=== PATIENT | male | born 1975 | race Two or more races ===

== ENCOUNTER 2019-10-26 08:51 | Inpatient (IN) | payer BC ==
[~2019-10-26] VITALS: Ht 185.4 cm; Wt 137.9 kg
[2019-10-26 12:50] VITALS: BP 163/91
--- NOTE | 2019-10-26 12:50 | NUR ---
NURSE NOTES: [facility] by [facility]. Alert, ambulatory, oriented x4. Has SL L H and LFA both 22G. No complaint of pain or discomfort. Bed has siderails padded as patient has history of seizures/epilepsy.
[2019-10-26] MEDS ORDERED: DEPAKOTE125 MG PO (12:55)
[2019-10-26] MEDS ORDERED: VIMPAT100 MG PO (12:57)
[2019-10-26] MEDS ORDERED: SYMBICORT 80-10.2 G1 IH (12:58)
[2019-10-26] MEDS ORDERED: PROAIR HFA8.5 GM INH (13:02)
[2019-10-26] MEDS ORDERED: NORVASC10 MG ORAL (13:03)
--- NOTE | 2019-10-26 15:36 | History & Physical ---
History and Physical History & Physicial Dictated for Int med-Dr Irene no. [id number]. Tony Hoyt MD Oct 26, 2019 15:36
[2019-10-26] MEDS ORDERED: LORazepam 1mg tab ORAL PRN (15:45)
[2019-10-26 16:00] VITALS: BP 177/88
[2019-10-26] MEDS ORDERED: Albuterol ud Inhalation HHN PRN (16:00)
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
[2019-10-26 17:32] LABS: ALANINE AMINOTRANSFERASE 32 U/L (12-78); ALBUMIN 3.1 G/DL (3.4-5.0); ALBUMIN/GLOBULIN RATIO 0.8 (1.0-2.7); ALKALINE PHOSPHATASE 62 U/L (46-116); ANION GAP 9 mmol/L (5-15); ASPARTATE AMINO TRANSFERASE 22 U/L (15-37); BASOPHILS % (AUTO) 1.9 % (0.0-2.0); BILIRUBIN,TOTAL 0.4 MG/DL (0.2-1.0); BLOOD UREA NITROGEN 18 mg/dL (7-18); CALCIUM 8.8 MG/DL (8.5-10.1); CARBON DIOXIDE 24 MMOL/L (21-32); CHLORIDE 103 MMOL/L (98-107); CREATININE 1.4 MG/DL (0.55-1.30); EOSINOPHILS % (AUTO) 3.4 % (0.0-3.0); HEMATOCRIT 40.4 % (42.0-52.0); HEMOGLOBIN 13.9 G/DL (14.2-18.0); LYMPHOCYTES % (AUTO) 51.6 % (20.0-45.0); MEAN CORPUSCULAR VOLUME 84 FL (80-99); NEUTROPHILS % (AUTO) 35.1 % (45.0-75.0); PLATELET COUNT 233 K/UL (150-450); POTASSIUM 4.6 MMOL/L (3.5-5.1); RED CELL DISTRIBUTION WIDTH 12.1 % (11.6-14.8); SODIUM 136 MMOL/L (136-145); WHITE BLOOD COUNT 5.4 K/UL (4.8-10.8)
[2019-10-26] MEDS: NovoLOG Insulin Flexpen SUBQ SCH ×2 (17:40→20:15)
--- NOTE | 2019-10-26 19:21 | NUR ---
HAND-OFF: Report given to BRITTANY Luke.
[2019-10-26 20:00] VITALS: BP 151/75
--- NOTE | 2019-10-26 20:00 | NUR ---
NURSE NOTES: Patient received in bed, asleep, no acute distress, denies pain at this time. Call light in reach, instructed to call for assistance, verbalized understanding. Will continue plan of care.
[2019-10-26] MEDS: metFORMIN 500mg tab ORAL SCH (20:09)
[2019-10-26] MEDS: Lacosamide 50mg tablet ORAL SCH (20:09)
[2019-10-26] MEDS: Depakote 500mg tab ORAL SCH (20:10)
[2019-10-26 20:53] LABS: APPEARANCE,URINE CLEAR; BILIRUBIN, URINE NEGATIVE (NEGATIVE); COLOR,URINE PALE YELLOW; GLUCOSE, URINE (UA) 4+ (NEGATIVE); KETONES,URINE 3+ (NEGATIVE); LEUKOCYTE ESTERASE ,URINE NEGATIVE (NEGATIVE); NITRITE,URINE NEGATIVE (NEGATIVE); PH,URINE 5 (4.5-8.0); PROTEIN,URINE NEGATIVE (NEGATIVE); UROBILINOGEN,URINE NORMAL MG/DL (0.0-1.0)
[2019-10-27] VITALS: BP 153/80
[2019-10-27 04:00] VITALS: BP 150/78
[2019-10-27] MEDS: metFORMIN 500mg tab ORAL SCH ×3 (06:09→16:57)
[2019-10-27] MEDS: NovoLOG Insulin Flexpen SUBQ SCH ×4 (06:10→20:24)
[2019-10-27 07:19] LABS: BASOPHILS % (AUTO) 1.6 % (0.0-2.0); EOSINOPHILS % (AUTO) 3.4 % (0.0-3.0); HEMATOCRIT 46.6 % (42.0-52.0); HEMOGLOBIN 15.7 G/DL (14.2-18.0); LYMPHOCYTES % (AUTO) 51.7 % (20.0-45.0); MEAN CORPUSCULAR VOLUME 86 FL (80-99); MONOCYTES % (AUTO) 7.7 % (1.0-10.0); NEUTROPHILS % (AUTO) 35.6 % (45.0-75.0); PLATELET COUNT 257 K/UL (150-450); RED BLOOD COUNT 5.44 M/UL (4.70-6.10); RED CELL DISTRIBUTION WIDTH 12.5 % (11.6-14.8); WHITE BLOOD COUNT 6.1 K/UL (4.8-10.8)
--- NOTE | 2019-10-27 07:22 | NUR ---
HAND-OFF: Report given to Rosa Maria SOTO.
[2019-10-27 07:48] LABS: ANION GAP 10 mmol/L (5-15); BLOOD UREA NITROGEN 15 mg/dL (7-18); CARBON DIOXIDE 25 MMOL/L (21-32); CHLORIDE 102 MMOL/L (98-107); CHOLESTEROL 200 MG/DL (< 200); CREATININE 1.5 MG/DL (0.55-1.30); HDL CHOLESTEROL 46 MG/DL (40-60); POTASSIUM 4.3 MMOL/L (3.5-5.1); SODIUM 137 MMOL/L (136-145); TRIGLYCERIDES 257 MG/DL (30-150)
[2019-10-27 08:00] VITALS: BP 164/82
[2019-10-27] MEDS: Lacosamide 50mg tablet ORAL SCH ×2 (10:17→20:20)
[2019-10-27 12:00] VITALS: BP 163/89
--- NOTE | 2019-10-27 13:30 | Consultation ---
History of Present Illness Present Illness HPI 43 year old male with hx of asthma, HTN, morbid obesity presented to [facility] with polyuria and was found to have new onset diabetes. He has strong family history of DM. He is transferred to [facility] for further treatment. Allergies: Coded Allergies: No Known Allergies (Unverified , 10/26/19) Medication History Scheduled Albuterol Sulfate* (Proair Hfa*), 2 PUFFS INH Q6HR, (Reported) Amlodipine Besylate (Norvasc), 10 MG ORAL DAILY, (Reported) Budesonide/Formoterol Fumarate (Symbicort 80-4.5 Mcg Inhaler), 2 PUFFS IH BID, ( Reported) Divalproex Sodium (Depakote), 500 MG PO QHS, (Reported) Lacosamide (Vimpat), 100 MG PO EVERY 12 HOURS, (Reported) Patient History Healthcare decision maker Resuscitation status Full Code Advanced Directive on File Yes Past Medical/Surgical History Past Medical/Surgical History: (1) History of asthma (2) Seizure disorder Review of Systems All Other Systems: negative except mentioned in HPI Physical Exam General Appearance: mild distress, obese Lines, tubes and drains: peripheral HEENT: normocephalic, atraumatic Neck: non-tender, supple Respiratory/Chest: chest wall non-tender, lungs clear Breasts: no masses Cardiovascular/Chest: normal peripheral pulses, regular rhythm Abdomen: normal bowel sounds Genitourinary/Rectal: normal genital exam Last 24 Hour Vital Signs Date Time Temp Pulse Resp B/P (MAP) Pulse Ox O2 Delivery O2 Flow Rate FiO2 10/27/19 12:00 98.2 65 18 163/89 (113) 93 10/27/19 10:16 61 164/82 10/27/19 08:00 97.6 61 20 164/82 (109) 98 10/27/19 04:00 97.7 60 18 150/78 (102) 97 10/27/19 00:18 61 18 100 Room Air 21 54 18 96 10/27/19 00:00 97.7 58 18 153/80 (104) 98 10/26/19 21:00 Room Air 10/26/19 20:00 97.7 55 18 151/75 (100) 97 10/26/19 17:34 56 163/91 10/26/19 16:00 97.5 53 18 177/88 (117) 97 Intake and Output 10/26/19 10/27/19 19:00 07:00 Intake Total 675 ml 1625 ml Balance 675 ml 1625 ml Intake Oral 600 ml 800 ml IV Total 75 ml 825 ml # Voids 2 5 # Bowel Movements 1 Laboratory Tests Test 10/26/19 16:20 10/26/19 18:00 10/27/19 06:30 White Blood Count 5.4 K/UL (4.8-10.8) 6.1 K/UL (4.8-10.8) Red Blood Count 4.80 M/UL (4.70-6.10) 5.44 M/UL (4.70-6.10) Hemoglobin 13.9 G/DL (14.2-18.0) L 15.7 G/DL (14.2-18.0) Hematocrit 40.4 % (42.0-52.0) L 46.6 % (42.0-52.0) Mean Corpuscular Volume 84 FL (80-99) 86 FL (80-99) Mean Corpuscular Hemoglobin 28.9 PG (27.0-31.0) 28.9 PG (27.0-31.0) Mean Corpuscular Hemoglobin Concent 34.3 G/DL (32.0-36.0) 33.7 G/DL (32.0-36.0) Red Cell Distribution Width 12.1 % (11.6-14.8) 12.5 % (11.6-14.8) Platelet Count 233 K/UL (150-450) 257 K/UL (150-450) Mean Platelet Volume 6.8 FL (6.5-10.1) 6.6 FL (6.5-10.1) Neutrophils (%) (Auto) 35.1 % (45.0-75.0) L 35.6 % (45.0-75.0) L Lymphocytes (%) (Auto) 51.6 % (20.0-45.0) H 51.7 % (20.0-45.0) H Monocytes (%) (Auto) 8.0 % (1.0-10.0) 7.7 % (1.0-10.0) Eosinophils (%) (Auto) 3.4 % (0.0-3.0) H 3.4 % (0.0-3.0) H Basophils (%) (Auto) 1.9 % (0.0-2.0) 1.6 % (0.0-2.0) Sodium Level 136 MMOL/L (136-145) 137 MMOL/L (136-145) Potassium Level 4.6 MMOL/L (3.5-5.1) 4.3 MMOL/L (3.5-5.1) Chloride Level 103 MMOL/L (98-107) 102 MMOL/L (98-107) Carbon Dioxide Level 24 MMOL/L (21-32) 25 MMOL/L (21-32) Anion Gap 9 mmol/L (5-15) 10 mmol/L (5-15) Blood Urea Nitrogen 18 mg/dL (7-18) 15 mg/dL (7-18) Creatinine 1.4 MG/DL (0.55-1.30) H 1.5 MG/DL (0.55-1.30) H Estimat Glomerular Filtration Rate 54.8 mL/min (>60) 50.6 mL/min (>60) Glucose Level 345 MG/DL (74-106) H 288 MG/DL (74-106) H Calcium Level 8.8 MG/DL (8.5-10.1) 9.0 MG/DL (8.5-10.1) Total Bilirubin 0.4 MG/DL (0.2-1.0) Aspartate Amino Transf (AST/SGOT) 22 U/L (15-37) Alanine Aminotransferase (ALT/SGPT) 32 U/L (12-78) Alkaline Phosphatase 62 U/L (46-116) Total Protein 7.2 G/DL (6.4-8.2) Albumin 3.1 G/DL (3.4-5.0) L Globulin 4.1 g/dL Albumin/Globulin Ratio 0.8 (1.0-2.7) L Urine Color Pale yellow Urine Appearance Clear Urine pH 5 (4.5-8.0) Urine Specific [place] 1.015 (1.005-1.035) Urine Protein Negative (NEGATIVE) Urine Glucose (UA) 4+ (NEGATIVE) H Urine Ketones 3+ (NEGATIVE) H Urine Blood Negative (NEGATIVE) Urine Nitrite Negative (NEGATIVE) Urine Bilirubin Negative (NEGATIVE) Urine Urobilinogen Normal MG/DL (0.0-1.0) Urine Leukocyte Esterase Negative (NEGATIVE) Hemoglobin A1c 10.9 % (4.3-6.0) H Triglycerides Level 257 MG/DL (30-150) H Cholesterol Level 200 MG/DL (< 200) LDL Cholesterol 106 mg/dL (<100) H HDL Cholesterol 46 MG/DL (40-60) Cholesterol/HDL Ratio 4.3 (3.3-4.4) Height (Feet): 6 Height (Inches): 1.00 Weight (Pounds): 300 Medications Current Medications Medications (Trade) Dose Ordered Sig/Venkata Route PRN Reason Start Time Stop Time Status Last Admin Dose Admin Acetaminophen (Tylenol) 650 mg Q4H PRN ORAL Mild Pain (Pain Scale 1-3) 10/26/19 15:45 11/25/19 15:44 Acetaminophen (Tylenol) 650 mg Q4H PRN ORAL T>100.5 10/26/19 15:45 11/25/19 15:44 Albuterol Sulfate (Proventil) 2.5 mg Q6H PRN HHN Shortness of Breath 10/26/19 16:00 10/31/19 15:59 10/27/19 00:14 Amlodipine Besylate (Norvasc) 10 mg DAILY ORAL 10/26/19 16:30 11/26/19 08:59 10/27/19 10:16 Dextrose (Dextrose 50%) 25 ml Q30M PRN IV Hypoglycemia 10/26/19 16:00 11/25/19 15:59 Dextrose (Dextrose 50%) 50 ml Q30M PRN IV Hypoglycemia 10/26/19 16:00 11/25/19 15:59 Diphenhydramine HCl (Benadryl) 25 mg Q6H PRN ORAL Itching/Pruritis 10/26/19 15:45 11/25/19 15:44 Divalproex Sodium (Depakote) 500 mg QHS ORAL 10/26/19 21:00 11/25/19 20:59 10/26/19 20:10 Insulin Aspart (NovoLOG) BEFORE MEALS AND HS SUBQ 10/26/19 17:00 11/25/19 16:59 10/27/19 12:42 Lacosamide (Vimpat) 100 mg Q12HR ORAL 10/26/19 21:00 11/25/19 20:59 10/27/19 10:17 Lorazepam (Ativan) 1 mg Q4H PRN ORAL For Anxiety 10/26/19 15:45 11/02/19 15:44 Metformin HCl (Glucophage) 500 mg TIAC ORAL 10/26/19 20:00 11/25/19 19:59 10/27/19 12:39 Ondansetron HCl (Zofran) 4 mg Q4H PRN IVP Nausea & Vomiting 10/26/19 15:45 11/25/19 15:44 Pantoprazole (Protonix) 40 mg DAILY ORAL 10/27/19 09:00 11/26/19 08:59 10/27/19 10:16 Sodium Chloride 1,000 ml @ 75 mls/hr [id number] IVLG 10/26/19 16:36 11/25/19 16:35 10/27/19 06:09 Temazepam (Restoril) 30 mg HSPRN PRN ORAL Insomnia 10/26/19 21:00 11/02/19 20:59 Assessment/Plan Problem List: (1) New onset type 2 diabetes mellitus ICD Codes: E11.9 - Type 2 diabetes mellitus without complications SNOMED: 39606982 (2) Hyperglycemia ICD Codes: R73.9 - Hyperglycemia, unspecified SNOMED: 79957218 (3) Seizure disorder ICD Codes: G40.909 - Epilepsy, unspecified, not intractable, without status epilepticus SNOMED: 528627733 (4) History of asthma ICD Codes: Z87.09 - Personal history of other diseases of the respiratory system SNOMED: 238388235 Assessment/Plan: sliding scale iv fluids diabetic diet awaiting endo to see respiratory treatment prn dvt prophylaxis. Misael Munoz MD Oct 27, 2019 13:30
[2019-10-27 16:00] VITALS: BP 159/90
--- NOTE | 2019-10-27 19:06 | NUR ---
HAND-OFF: Report given to BRITTANY Luke.
--- NOTE | 2019-10-27 19:21 | Internal Med Progress Note ---
Subjective Date of Service: Oct 27, 2019 Physician Name Tony Hoyt Attending Physician Grady Irene MD Current Medications Medications (Trade) Dose Ordered Sig/Venkata Route PRN Reason Start Time Stop Time Status Last Admin Dose Admin Acetaminophen (Tylenol) 650 mg Q4H PRN ORAL Mild Pain (Pain Scale 1-3) 10/26/19 15:45 11/25/19 15:44 Acetaminophen (Tylenol) 650 mg Q4H PRN ORAL T>100.5 10/26/19 15:45 11/25/19 15:44 Albuterol Sulfate (Proventil) 2.5 mg Q6H PRN HHN Shortness of Breath 10/26/19 16:00 10/31/19 15:59 10/27/19 00:14 Amlodipine Besylate (Norvasc) 10 mg DAILY ORAL 10/26/19 16:30 11/26/19 08:59 10/27/19 10:16 Dextrose (Dextrose 50%) 25 ml Q30M PRN IV Hypoglycemia 10/26/19 16:00 11/25/19 15:59 Dextrose (Dextrose 50%) 50 ml Q30M PRN IV Hypoglycemia 10/26/19 16:00 11/25/19 15:59 Diphenhydramine HCl (Benadryl) 25 mg Q6H PRN ORAL Itching/Pruritis 10/26/19 15:45 11/25/19 15:44 Divalproex Sodium (Depakote) 500 mg QHS ORAL 10/26/19 21:00 11/25/19 20:59 10/26/19 20:10 Insulin Aspart (NovoLOG) BEFORE MEALS AND HS SUBQ 10/26/19 17:00 11/25/19 16:59 10/27/19 17:16 Lacosamide (Vimpat) 100 mg Q12HR ORAL 10/26/19 21:00 11/25/19 20:59 10/27/19 10:17 Lorazepam (Ativan) 1 mg Q4H PRN ORAL For Anxiety 10/26/19 15:45 11/02/19 15:44 Metformin HCl (Glucophage) 500 mg TIAC ORAL 10/26/19 20:00 11/25/19 19:59 10/27/19 16:57 Ondansetron HCl (Zofran) 4 mg Q4H PRN IVP Nausea & Vomiting 10/26/19 15:45 11/25/19 15:44 Pantoprazole (Protonix) 40 mg DAILY ORAL 10/27/19 09:00 11/26/19 08:59 10/27/19 10:16 Sodium Chloride 1,000 ml @ 75 mls/hr [id number] IVLG 10/26/19 16:36 11/25/19 16:35 10/27/19 19:19 Temazepam (Restoril) 30 mg HSPRN PRN ORAL Insomnia 10/26/19 21:00 11/02/19 20:59 Allergies: Coded Allergies: No Known Allergies (Unverified , 10/26/19) ROS Limited/Unobtainable: No Constitutional: Reports: no symptoms HEENT: Reports: no symptoms Cardiovascular: Reports: no symptoms Respiratory: Reports: no symptoms Gastrointestinal/Abdominal: Reports: no symptoms Genitourinary: Reports: no symptoms Neurologic/Psychiatric: Reports: no symptoms Subjective 43 YO M admitted with new onset diabetes. Cover for Int Ter[facility]-DR Irene Objective Last Vital Signs Date Time Temp Pulse Resp B/P (MAP) Pulse Ox O2 Delivery O2 Flow Rate FiO2 10/27/19 16:00 97.6 61 20 159/90 (113) 98 10/27/19 09:00 Room Air 10/27/19 00:18 21 Laboratory Tests Test 10/27/19 06:30 White Blood Count 6.1 K/UL (4.8-10.8) Red Blood Count 5.44 M/UL (4.70-6.10) Hemoglobin 15.7 G/DL (14.2-18.0) Hematocrit 46.6 % (42.0-52.0) Mean Corpuscular Volume 86 FL (80-99) Mean Corpuscular Hemoglobin 28.9 PG (27.0-31.0) Mean Corpuscular Hemoglobin Concent 33.7 G/DL (32.0-36.0) Red Cell Distribution Width 12.5 % (11.6-14.8) Platelet Count 257 K/UL (150-450) Mean Platelet Volume 6.6 FL (6.5-10.1) Neutrophils (%) (Auto) 35.6 % (45.0-75.0) L Lymphocytes (%) (Auto) 51.7 % (20.0-45.0) H Monocytes (%) (Auto) 7.7 % (1.0-10.0) Eosinophils (%) (Auto) 3.4 % (0.0-3.0) H Basophils (%) (Auto) 1.6 % (0.0-2.0) Sodium Level 137 MMOL/L (136-145) Potassium Level 4.3 MMOL/L (3.5-5.1) Chloride Level 102 MMOL/L (98-107) Carbon Dioxide Level 25 MMOL/L (21-32) Anion Gap 10 mmol/L (5-15) Blood Urea Nitrogen 15 mg/dL (7-18) Creatinine 1.5 MG/DL (0.55-1.30) H Estimat Glomerular Filtration Rate 50.6 mL/min (>60) Glucose Level 288 MG/DL (74-106) H Hemoglobin A1c 10.9 % (4.3-6.0) H Calcium Level 9.0 MG/DL (8.5-10.1) Triglycerides Level 257 MG/DL (30-150) H Cholesterol Level 200 MG/DL (< 200) LDL Cholesterol 106 mg/dL (<100) H HDL Cholesterol 46 MG/DL (40-60) Cholesterol/HDL Ratio 4.3 (3.3-4.4) Intake and Output 10/26/19 10/27/19 19:00 07:00 Intake Total 675 ml 1625 ml Balance 675 ml 1625 ml Intake Oral 600 ml 800 ml IV Total 75 ml 825 ml # Voids 2 5 # Bowel Movements 1 Objective PHYSICAL EXAMINATION: VITAL SIGNS: Temperature 98.1, respirations 16, pulse 64, blood pressure 173/69. GENERAL: The patient is well-developed and well-nourished obese male, in no apparent distress. HEENT: Eyes, pupils are equal and responsive to light and accommodation. Extraocular movements are intact. NECK: Supple without lymphadenopathy. CHEST: Lungs are clear to auscultation bilaterally without wheezes or rales. CARDIOVASCULAR: Regular rhythm and rate. S1 and S2 normal without murmurs, rubs, or gallops. ABDOMEN: Soft, nontender, nondistended. Positive bowel sounds. No evidence of hepatosplenomegaly. Currently, no rebound or guarding noted. EXTREMITIES: Negative for clubbing, cyanosis, or edema. RECTAL/GENITAL: Not performed. NEUROLOGIC: Cranial nerves II through XII are grossly intact without focal deficits. Motor strength is 5/5 bilaterally. Deep tendon reflexes are 2+ Assessment/Plan Assessment/Plan ASSESSMENT: This is a 43-year-old male: 1. New onset diabetes type 2. 2. Hyperglycemia. 3. Hypertension. 4. Asthma. 5. Seizure disorder. TREATMENT: 1. New onset diabetes type 2/hyperglycemia. An endocrinology consultation obtained with Dr. Pearce. The patient has been started on a regular insulin sliding scale. The patient will be started on metformin. The patient will also be started on glyburide. 2. Hypertension. Continue Norvasc as above. 3. Asthma. Continue ProAir and Symbicort as above. 4. Seizure disorder. Vimpat is non-formulary at [facility]. The patient may use medications. Tony Hoyt MD Oct 27, 2019 19:21
--- NOTE | 2019-10-27 19:30 | NUR ---
NURSE NOTES: Patient received in bed, aaox4, denies any pain or distress at this time. IVF infusing in LFA. Intact and patent. Will continue to monitor.
[2019-10-27 20:00] VITALS: BP 149/80
[2019-10-27] MEDS: Depakote 500mg tab ORAL SCH (20:20)
--- NOTE | 2019-10-27 23:20 | NUR ---
NURSE NOTES: Received patient in bed, report is given by Patricia SOTO, patient is asleep, no acute distress noted, IV site is clean dry and intact. Call light is within reach, bed lowered, locked and alarm is on. Will continue to monitor for comfort and safety.
--- NOTE | 2019-10-27 23:38 | NUR ---
HAND-OFF: Report given to Mary SOTO.
[2019-10-28] VITALS: BP_SYST 162
[2019-10-28 04:00] VITALS: BP 150/78
[2019-10-28] MEDS: NovoLOG Insulin Flexpen SUBQ SCH ×4 (05:44→20:01)
[2019-10-28] MEDS ORDERED: metFORMIN 500mg tab ORAL SCH (06:30)
--- NOTE | 2019-10-28 07:07 | NUR ---
HAND-OFF: Report given to Chepe SOTO.
--- NOTE | 2019-10-28 07:41 | NUR ---
NURSE NOTES: Patient awake, alert x4; on room air, no sing of distress and shortness of breath; IV Left For-Arm 24G NS 75cc running; side rails up x2 and padded for seizure percussion, breaks engaged, bed at lowest position; will check blood sugar as scheduled; will keep monitoring.
[2019-10-28 08:00] VITALS: BP 165/95
[2019-10-28] MEDS: metFORMIN 500mg tab ORAL SCH ×3 (08:19→17:01)
[2019-10-28] MEDS: Lacosamide 50mg tablet ORAL SCH ×2 (08:20→19:59)
--- NOTE | 2019-10-28 08:30 | Consultation ---
DATE OF CONSULTATION: 10/28/2019 ENDOCRINOLOGY CONSULTATION CONSULTING PHYSICIAN: Mainor Pearce M.D. REFERRING PHYSICIAN: Tony Hoyt M.D. REASON FOR CONSULTATION: Diabetes management. HISTORY OF PRESENT ILLNESS: The patient is a 43-year-old obese male without any history of diabetes, who has been experiencing polyuria, polydipsia since September. His mother has diabetes. He checked his glucose at home and it was over 600. Therefore, he presented to [facility] in [place] and was treated with IV fluid and insulin. The patient was not in DKA. He was transferred to [facility] due to insurance purposes for further observation and treatment where labs are repeated and glucose was 345. Hemoglobin A1c is 10.9 and creatinine is 1.5. The patient was started on sliding scale insulin as well as glyburide, which will be started today. This morning, glucose is 247. PAST MEDICAL HISTORY: 1. Asthma. 2. Obesity. 3. Seizure. MEDICATIONS: Reviewed and reconciled. SOCIAL HISTORY: No smoking, alcohol, or drug use. 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 ALLERGIES: His allergy to medication none. REVIEW OF SYSTEMS: A 12-point review of systems was performed and the pertinent positives and negatives as mentioned in present illness. LABORATORY DATA: Laboratory studies sodium 137, potassium 4.3, chloride 102, bicarbonate 25, BUN 15, creatinine 1.5. PHYSICAL EXAMINATION: GENERAL: He is awake and alert. VITAL SIGNS: Blood pressure is 150/78, pulse 85, temperature 97.9, respiratory rate of 18. HEENT: Pupils are reactive to light. Sclerae are anicteric. NECK: No JVD. No thyromegaly. LUNGS: Clear. HEART: Regular rate and rhythm. ABDOMEN: Positive bowel sounds. Soft. EXTREMITIES: No clubbing, cyanosis, or edema. DIAGNOSES: 1. New onset diabetes without DKA. 2. Obesity. 3. Elevated blood pressure. PLAN: 1. Continue glyburide 5 mg bid 2. Add metformin 500 mg t.i.d. 3. Add Januvia 100 mg daily. 4. As an outpatient, the patient will benefit to be treated with a combination of SGLT2 inhibitor of GLP-1 agonist. 5. Glucose monitoring before meals and at bedtime. 6. Further adjustment according to blood glucose values. Thank you Dr. Hoyt, for the courtesy of this consultation. Mainor Pearce M.D. DR: VIKTOR JOB#: [id number] CC: RO
--- NOTE | 2019-10-28 11:08 | NUR ---
*-* INSURANCE *-* ALL AVAILABLE CLINICALS HAVE BEEN FAXED TO: [facility] REF# [id number] P: [phone] F: [phone]
--- NOTE | 2019-10-28 11:57 | Pulmonology Progress Note ---
Assessment/Plan Problems: (1) New onset type 2 diabetes mellitus (2) Hyperglycemia (3) Seizure disorder (4) History of asthma Assessment/Plan sliding scale, BS at 250's iv fluids diabetic diet endo consult appreciated, Januvia and Metformin were added respiratory treatment prn dvt prophylaxis. Subjective ROS Limited/Unobtainable: No Constitutional: Reports: no symptoms HEENT: Repors: no symptoms Respiratory: Reports: no symptoms Allergies: Coded Allergies: No Known Allergies (Unverified , 10/26/19) Objective Last 24 Hour Vital Signs Date Time Temp Pulse Resp B/P (MAP) Pulse Ox O2 Delivery O2 Flow Rate FiO2 10/28/19 09:00 Room Air 10/28/19 08:20 59 165/95 10/28/19 08:09 95 Room Air 21 10/28/19 08:00 98.2 59 20 165/95 (118) 98 10/28/19 04:00 97.9 85 18 150/78 (102) 100 10/28/19 00:00 97.6 62 20 162/ 98 10/27/19 21:00 Room Air 10/27/19 20:40 96 Nasal Cannula 21 10/27/19 20:00 97.5 59 20 149/80 (103) 95 10/27/19 16:00 97.6 61 20 159/90 (113) 98 10/27/19 12:00 98.2 65 18 163/89 (113) 93 Intake and Output 10/27/19 10/28/19 19:00 07:00 Intake Total 2475 ml 825 ml Balance 2475 ml 825 ml Intake Oral 2400 ml IV Total 75 ml 825 ml # Voids 8 General Appearance: WD/WN HEENT: normocephalic, atraumatic Respiratory/Chest: chest wall non-tender, lungs clear Cardiovascular: normal peripheral pulses, normal rate Abdomen: normal bowel sounds, soft, non tender, no organomegaly Extremities: no cyanosis Skin: no rash Current Medications Medications (Trade) Dose Ordered Sig/Venkata Route PRN Reason Start Time Stop Time Status Last Admin Dose Admin Acetaminophen (Tylenol) 650 mg Q4H PRN ORAL Mild Pain (Pain Scale 1-3) 10/26/19 15:45 11/25/19 15:44 Acetaminophen (Tylenol) 650 mg Q4H PRN ORAL T>100.5 10/26/19 15:45 11/25/19 15:44 Albuterol Sulfate (Proventil) 2.5 mg Q6H PRN HHN Shortness of Breath 10/26/19 16:00 10/31/19 15:59 10/27/19 00:14 Amlodipine Besylate (Norvasc) 10 mg DAILY ORAL 10/26/19 16:30 11/26/19 08:59 10/28/19 08:20 Dextrose (Dextrose 50%) 25 ml Q30M PRN IV Hypoglycemia 10/26/19 16:00 11/25/19 15:59 Dextrose (Dextrose 50%) 50 ml Q30M PRN IV Hypoglycemia 10/26/19 16:00 11/25/19 15:59 Diphenhydramine HCl (Benadryl) 25 mg Q6H PRN ORAL Itching/Pruritis 10/26/19 15:45 11/25/19 15:44 Divalproex Sodium (Depakote) 500 mg QHS ORAL 10/26/19 21:00 11/25/19 20:59 10/27/19 20:20 Glyburide (Diabeta) 5 mg BIAC ORAL 10/28/19 06:30 11/27/19 06:29 10/28/19 05:46 Insulin Aspart (NovoLOG) BEFORE MEALS AND HS SUBQ 10/26/19 17:00 11/25/19 16:59 10/28/19 05:44 Lacosamide (Vimpat) 100 mg Q12HR ORAL 10/26/19 21:00 11/25/19 20:59 10/28/19 08:20 Lorazepam (Ativan) 1 mg Q4H PRN ORAL For Anxiety 10/26/19 15:45 11/02/19 15:44 Metformin HCl (Glucophage) 500 mg TIPC ORAL 10/28/19 09:00 11/27/19 06:29 10/28/19 08:19 Ondansetron HCl (Zofran) 4 mg Q4H PRN IVP Nausea & Vomiting 10/26/19 15:45 11/25/19 15:44 Pantoprazole (Protonix) 40 mg DAILY ORAL 10/27/19 09:00 11/26/19 08:59 10/28/19 08:19 Sitagliptin Phosphate (Januvia) 100 mg DAILY ORAL 10/28/19 09:00 11/27/19 06:29 10/28/19 08:19 Sodium Chloride 1,000 ml @ 75 mls/hr [id number] IVLG 10/26/19 16:36 11/25/19 16:35 10/28/19 05:51 Temazepam (Restoril) 30 mg HSPRN PRN ORAL Insomnia 10/26/19 21:00 11/02/19 20:59 Misael Munoz MD Oct 28, 2019 11:57
[2019-10-28 12:00] VITALS: BP_SYST 102; BP_SYST 162; BP_DIAS 86
[2019-10-28 16:00] VITALS: BP 164/80
--- NOTE | 2019-10-28 17:51 | Internal Med Progress Note ---
Subjective Date of Service: Oct 28, 2019 Physician Name Tony Hoyt Attending Physician Grady Irene MD Current Medications Medications (Trade) Dose Ordered Sig/Venkata Route PRN Reason Start Time Stop Time Status Last Admin Dose Admin Acetaminophen (Tylenol) 650 mg Q4H PRN ORAL Mild Pain (Pain Scale 1-3) 10/26/19 15:45 11/25/19 15:44 Acetaminophen (Tylenol) 650 mg Q4H PRN ORAL T>100.5 10/26/19 15:45 11/25/19 15:44 Albuterol Sulfate (Proventil) 2.5 mg Q6H PRN HHN Shortness of Breath 10/26/19 16:00 10/31/19 15:59 10/27/19 00:14 Amlodipine Besylate (Norvasc) 10 mg DAILY ORAL 10/26/19 16:30 11/26/19 08:59 10/28/19 08:20 Dextrose (Dextrose 50%) 25 ml Q30M PRN IV Hypoglycemia 10/26/19 16:00 11/25/19 15:59 Dextrose (Dextrose 50%) 50 ml Q30M PRN IV Hypoglycemia 10/26/19 16:00 11/25/19 15:59 Diphenhydramine HCl (Benadryl) 25 mg Q6H PRN ORAL Itching/Pruritis 10/26/19 15:45 11/25/19 15:44 Divalproex Sodium (Depakote) 500 mg QHS ORAL 10/26/19 21:00 11/25/19 20:59 10/27/19 20:20 Glyburide (Diabeta) 5 mg BIAC ORAL 10/28/19 06:30 11/27/19 06:29 10/28/19 17:01 Insulin Aspart (NovoLOG) BEFORE MEALS AND HS SUBQ 10/26/19 17:00 11/25/19 16:59 10/28/19 17:02 Lacosamide (Vimpat) 100 mg Q12HR ORAL 10/26/19 21:00 11/25/19 20:59 10/28/19 08:20 Lorazepam (Ativan) 1 mg Q4H PRN ORAL For Anxiety 10/26/19 15:45 11/02/19 15:44 Metformin HCl (Glucophage) 500 mg TIPC ORAL 10/28/19 09:00 11/27/19 06:29 10/28/19 17:01 Ondansetron HCl (Zofran) 4 mg Q4H PRN IVP Nausea & Vomiting 10/26/19 15:45 11/25/19 15:44 Pantoprazole (Protonix) 40 mg DAILY ORAL 10/27/19 09:00 11/26/19 08:59 10/28/19 08:19 Sitagliptin Phosphate (Januvia) 100 mg DAILY ORAL 10/28/19 09:00 11/27/19 06:29 10/28/19 08:19 Sodium Chloride 1,000 ml @ 75 mls/hr [id number] IVLG 10/26/19 16:36 11/25/19 16:35 10/28/19 05:51 Temazepam (Restoril) 30 mg HSPRN PRN ORAL Insomnia 10/26/19 21:00 11/02/19 20:59 Allergies: Coded Allergies: No Known Allergies (Unverified , 10/26/19) ROS Limited/Unobtainable: No Constitutional: Reports: no symptoms HEENT: Reports: no symptoms Cardiovascular: Reports: no symptoms Respiratory: Reports: no symptoms Gastrointestinal/Abdominal: Reports: no symptoms Genitourinary: Reports: no symptoms Neurologic/Psychiatric: Reports: no symptoms Subjective 43 YO M admitted with new onset diabetes. Cover for Int Med-DR Irene Objective Last Vital Signs Date Time Temp Pulse Resp B/P (MAP) Pulse Ox O2 Delivery O2 Flow Rate FiO2 10/28/19 16:00 97.5 59 19 164/80 (108) 98 10/28/19 09:00 Room Air 10/28/19 08:09 21 10/27/19 20:40 Intake and Output 10/27/19 10/28/19 19:00 07:00 Intake Total 2475 ml 825 ml Balance 2475 ml 825 ml Intake Oral 2400 ml IV Total 75 ml 825 ml # Voids 8 Objective PHYSICAL EXAMINATION: VITAL SIGNS: Temperature 98.1, respirations 16, pulse 64, blood pressure 173/69. GENERAL: The patient is well-developed and well-nourished obese male, in no apparent distress. HEENT: Eyes, pupils are equal and responsive to light and accommodation. Extraocular movements are intact. NECK: Supple without lymphadenopathy. CHEST: Lungs are clear to auscultation bilaterally without wheezes or rales. CARDIOVASCULAR: Regular rhythm and rate. S1 and S2 normal without murmurs, rubs, or gallops. ABDOMEN: Soft, nontender, nondistended. Positive bowel sounds. No evidence of hepatosplenomegaly. Currently, no rebound or guarding noted. EXTREMITIES: Negative for clubbing, cyanosis, or edema. RECTAL/GENITAL: Not performed. NEUROLOGIC: Cranial nerves II through XII are grossly intact without focal deficits. Motor strength is 5/5 bilaterally. Deep tendon reflexes are 2+ Assessment/Plan Assessment/Plan ASSESSMENT: This is a 43-year-old male: 1. New onset diabetes type 2. 2. Hyperglycemia. 3. Hypertension. 4. Asthma. 5. Seizure disorder. TREATMENT: 1. New onset diabetes type 2/hyperglycemia. An endocrinology consultation obtained with Dr. Pearce. The patient has been started on a regular insulin sliding scale. The patient will be started on metformin and glyburide. The patient will also be started on glyburide. 2. Hypertension. Continue Norvasc as above. 3. Asthma. Continue ProAir and Symbicort as above. 4. Seizure disorder. Vimpat is non-formulary at [facility]. The patient may use medications. Tony Hoyt MD Oct 28, 2019 17:51
--- NOTE | 2019-10-28 19:27 | NUR ---
HAND-OFF: Report given to BRITTANY Noel.
--- NOTE | 2019-10-28 19:33 | NUR ---
NURSE NOTES: Received patient awake, alert, verbal, resting in bed comfortably without complaints.
[2019-10-28] MEDS: Depakote 500mg tab ORAL SCH (19:59)
[2019-10-28 20:00] VITALS: BP 146/85
[2019-10-29] VITALS: BP 150/69
[2019-10-29 04:00] VITALS: BP 133/78
[2019-10-29] MEDS: NovoLOG Insulin Flexpen SUBQ SCH ×4 (06:06→20:14)
--- NOTE | 2019-10-29 06:45 | General Progress Note ---
Assessment/Plan Problem List: (1) New onset type 2 diabetes mellitus ICD Codes: E11.9 - Type 2 diabetes mellitus without complications SNOMED: 54685452 (2) Hyperglycemia ICD Codes: R73.9 - Hyperglycemia, unspecified SNOMED: 30869299 (3) History of asthma ICD Codes: Z87.09 - Personal history of other diseases of the respiratory system SNOMED: 353092961 (4) Seizure disorder ICD Codes: G40.909 - Epilepsy, unspecified, not intractable, without status epilepticus SNOMED: 340454856 Assessment/Plan: glucose values are improving continue Glyburide 5 mg bid continue Metformin 500 mg tid continue Januvia 100 mg daily continue NISS ac / hs Subjective Allergies: Coded Allergies: No Known Allergies (Unverified , 10/26/19) Subjective events noted Item Value Date Time Bedside Blood Glucose 243 mg/dl H 10/28/19 1702 Bedside Blood Glucose 259 mg/dl H 10/28/19 1157 Bedside Blood Glucose 269 mg/dl H 10/28/19 0544 Objective Last 24 Hour Vital Signs Date Time Temp Pulse Resp B/P (MAP) Pulse Ox O2 Delivery O2 Flow Rate FiO2 10/29/19 04:00 97.7 66 20 133/78 (96) 100 10/29/19 00:00 97.5 57 19 150/69 (96) 97 10/28/19 20:14 Room Air 10/28/19 20:00 97.8 64 20 146/85 (105) 98 10/28/19 19:00 96 Room Air 21 10/28/19 16:00 97.5 59 19 164/80 (108) 98 10/28/19 12:00 98.0 58 18 162/86 (111) 98 10/28/19 09:00 Room Air 10/28/19 08:20 59 165/95 10/28/19 08:09 95 Room Air 21 10/28/19 08:00 98.2 59 20 165/95 (118) 98 Intake and Output 10/28/19 10/29/19 18:59 06:59 Intake Total 2400 ml 825 ml Output Total 800 ml Balance 2400 ml 25 ml Intake Oral 1500 ml IV Total 900 ml 825 ml Output Urine Total 800 ml # Voids 3 Height (Feet): 6 Height (Inches): 1.00 Weight (Pounds): 304 General Appearance: no apparent distress Neck: normal alignment Cardiovascular: normal rate Respiratory/Chest: lungs clear Abdomen: normal bowel sounds Edema: no edema noted Arm (L), no edema noted Arm (R), no edema noted Leg (L), no edema noted Leg (R), no edema noted Pedal (L), no edema noted Pedal (R), no edema noted Generalized Objective Current Medications Medications (Trade) Dose Ordered Sig/Venkata Route PRN Reason Start Time Stop Time Status Last Admin Dose Admin Acetaminophen (Tylenol) 650 mg Q4H PRN ORAL Mild Pain (Pain Scale 1-3) 10/26/19 15:45 11/25/19 15:44 Acetaminophen (Tylenol) 650 mg Q4H PRN ORAL T>100.5 10/26/19 15:45 11/25/19 15:44 Albuterol Sulfate (Proventil) 2.5 mg Q6H PRN HHN Shortness of Breath 10/26/19 16:00 10/31/19 15:59 10/27/19 00:14 Amlodipine Besylate (Norvasc) 10 mg DAILY ORAL 10/26/19 16:30 11/26/19 08:59 10/28/19 08:20 Dextrose (Dextrose 50%) 25 ml Q30M PRN IV Hypoglycemia 10/26/19 16:00 11/25/19 15:59 Dextrose (Dextrose 50%) 50 ml Q30M PRN IV Hypoglycemia 10/26/19 16:00 11/25/19 15:59 Diphenhydramine HCl (Benadryl) 25 mg Q6H PRN ORAL Itching/Pruritis 10/26/19 15:45 11/25/19 15:44 Divalproex Sodium (Depakote) 500 mg QHS ORAL 10/26/19 21:00 11/25/19 20:59 10/28/19 19:59 Glyburide (Diabeta) 5 mg BIAC ORAL 10/28/19 06:30 11/27/19 06:29 10/29/19 06:05 Insulin Aspart (NovoLOG) BEFORE MEALS AND HS SUBQ 10/26/19 17:00 11/25/19 16:59 10/29/19 06:06 Lacosamide (Vimpat) 100 mg Q12HR ORAL 10/26/19 21:00 11/25/19 20:59 10/28/19 19:59 Lorazepam (Ativan) 1 mg Q4H PRN ORAL For Anxiety 10/26/19 15:45 11/02/19 15:44 Metformin HCl (Glucophage) 500 mg TIPC ORAL 10/28/19 09:00 11/27/19 06:29 10/28/19 17:01 Ondansetron HCl (Zofran) 4 mg Q4H PRN IVP Nausea & Vomiting 10/26/19 15:45 11/25/19 15:44 Pantoprazole (Protonix) 40 mg DAILY ORAL 10/27/19 09:00 11/26/19 08:59 10/28/19 08:19 Sitagliptin Phosphate (Januvia) 100 mg DAILY ORAL 10/28/19 09:00 11/27/19 06:29 10/28/19 08:19 Sodium Chloride 1,000 ml @ 75 mls/hr [id number] IVLG 10/26/19 16:36 11/25/19 16:35 10/28/19 20:00 Temazepam (Restoril) 30 mg HSPRN PRN ORAL Insomnia 10/26/19 21:00 11/02/19 20:59 Mainor Pearce MD Oct 29, 2019 06:45
--- NOTE | 2019-10-29 07:16 | NUR ---
HAND-OFF: Report given to Ivania Olivo RN.
[2019-10-29 07:23] LABS: HEMATOCRIT 46.6 % (42.0-52.0); HEMOGLOBIN 15.7 G/DL (14.2-18.0); MEAN CORPUSCULAR VOLUME 86 FL (80-99); PLATELET COUNT 241 K/UL (150-450); RED BLOOD COUNT 5.44 M/UL (4.70-6.10); RED CELL DISTRIBUTION WIDTH 12.9 % (11.6-14.8); WHITE BLOOD COUNT 3.3 K/UL (4.8-10.8)
--- NOTE | 2019-10-29 07:30 | NUR ---
NURSE NOTES: Patient alert x4, on room air, no sign of distress and shortness of breath; no sing of chest pain; IV Left For-Arm 24G NS 75cc running; side rails padded for seizure percussion, breaks engaged, bed at lowest position; will check blood sugar as scheduled; I received a call from Ludivina poole, patient's K is high and lad gonna do a re-draw and check the blood again; will follow up on that. call light within reach; will keep monitoring.
[2019-10-29 08:00] VITALS: BP 155/75
[2019-10-29] MEDS: metFORMIN 500mg tab ORAL SCH ×3 (08:43→17:27)
[2019-10-29] MEDS: Lacosamide 50mg tablet ORAL SCH ×2 (08:44→20:12)
[2019-10-29 08:56] LABS: ANION GAP 9 mmol/L (5-15); BLOOD UREA NITROGEN 16 mg/dL (7-18); CALCIUM 9.3 MG/DL (8.5-10.1); CARBON DIOXIDE 24 MMOL/L (21-32); CHLORIDE 101 MMOL/L (98-107); CREATININE 1.5 MG/DL (0.55-1.30); POTASSIUM 4.7 MMOL/L (3.5-5.1); SODIUM 134 MMOL/L (136-145)
[2019-10-29 11:50] VITALS: BP 157/92
--- NOTE | 2019-10-29 13:51 | Pulmonology Progress Note ---
Assessment/Plan Problems: (1) New onset type 2 diabetes mellitus (2) Hyperglycemia (3) Seizure disorder (4) History of asthma (5) Diabetic nephropathy Assessment/Plan sliding scale, BS at 300's iv fluids diabetic diet endo consult appreciated, Januvia and Metformin were added renal US respiratory treatment prn dvt prophylaxis. Subjective ROS Limited/Unobtainable: No Constitutional: Reports: no symptoms HEENT: Repors: no symptoms Respiratory: Reports: no symptoms Allergies: Coded Allergies: No Known Allergies (Unverified , 10/26/19) Objective Last 24 Hour Vital Signs Date Time Temp Pulse Resp B/P (MAP) Pulse Ox O2 Delivery O2 Flow Rate FiO2 10/29/19 11:50 98.6 68 21 157/92 (113) 96 10/29/19 09:00 Room Air 10/29/19 08:43 59 155/75 10/29/19 08:00 97.9 89 20 155/75 (101) 97 10/29/19 04:00 97.7 66 20 133/78 (96) 100 10/29/19 00:00 97.5 57 19 150/69 (96) 97 10/28/19 20:14 Room Air 10/28/19 20:00 97.8 64 20 146/85 (105) 98 10/28/19 19:00 96 Room Air 21 10/28/19 16:00 97.5 59 19 164/80 (108) 98 Intake and Output 10/28/19 10/29/19 19:00 07:00 Intake Total 2400 ml 825 ml Output Total 800 ml Balance 2400 ml 25 ml Intake Oral 1500 ml IV Total 900 ml 825 ml Output Urine Total 800 ml # Voids 3 General Appearance: WD/WN HEENT: normocephalic, anicteric Respiratory/Chest: chest wall non-tender, lungs clear Cardiovascular: normal peripheral pulses, normal rate Abdomen: normal bowel sounds, no organomegaly Genitourinary: normal external genitalia Extremities: no clubbing Skin: no lesions Laboratory Tests 10/29/19 06:39: White Blood Count 3.3L, Red Blood Count 5.44, Hemoglobin 15.7, Hematocrit 46.6, Mean Corpuscular Volume 86, Mean Corpuscular Hemoglobin 28.8, Mean Corpuscular Hemoglobin Concent 33.7, Red Cell Distribution Width 12.9, Platelet Count 241, Mean Platelet Volume 6.0L, Neutrophils (%) (Auto) , Lymphocytes (%) (Auto) , Monocytes (%) (Auto) , Eosinophils (%) (Auto) , Basophils (%) (Auto) , Differential Total Cells Counted 100, Neutrophils % (Manual) 24L, Lymphocytes % (Manual) 63H, Monocytes % (Manual) 11H, Eosinophils % (Manual) 2, Basophils % ( Manual) 0, Band Neutrophils 0, Platelet Estimate Adequate, Platelet Morphology Normal, Red Blood Cell Morphology Normal 10/29/19 08:20: Sodium Level 134L, Potassium Level 4.7, Chloride Level 101, Carbon Dioxide Level 24, Anion Gap 9, Blood Urea Nitrogen 16, Creatinine 1.5H, Estimat Glomerular Filtration Rate 50.6, Glucose Level 335H, Calcium Level 9.3 Current Medications Medications (Trade) Dose Ordered Sig/Venkata Route PRN Reason Start Time Stop Time Status Last Admin Dose Admin Acetaminophen (Tylenol) 650 mg Q4H PRN ORAL Mild Pain (Pain Scale 1-3) 10/26/19 15:45 11/25/19 15:44 Acetaminophen (Tylenol) 650 mg Q4H PRN ORAL T>100.5 10/26/19 15:45 11/25/19 15:44 Albuterol Sulfate (Proventil) 2.5 mg Q6H PRN HHN Shortness of Breath 10/26/19 16:00 10/31/19 15:59 10/27/19 00:14 Amlodipine Besylate (Norvasc) 10 mg DAILY ORAL 10/26/19 16:30 11/26/19 08:59 10/29/19 08:43 Dextrose (Dextrose 50%) 25 ml Q30M PRN IV Hypoglycemia 10/26/19 16:00 11/25/19 15:59 Dextrose (Dextrose 50%) 50 ml Q30M PRN IV Hypoglycemia 10/26/19 16:00 11/25/19 15:59 Diphenhydramine HCl (Benadryl) 25 mg Q6H PRN ORAL Itching/Pruritis 10/26/19 15:45 11/25/19 15:44 Divalproex Sodium (Depakote) 500 mg QHS ORAL 10/26/19 21:00 11/25/19 20:59 10/28/19 19:59 Glyburide (Diabeta) 5 mg BIAC ORAL 10/28/19 06:30 11/27/19 06:29 10/29/19 06:05 Insulin Aspart (NovoLOG) BEFORE MEALS AND HS SUBQ 10/26/19 17:00 11/25/19 16:59 10/29/19 12:02 Lacosamide (Vimpat) 100 mg Q12HR ORAL 10/26/19 21:00 11/25/19 20:59 10/29/19 08:44 Lorazepam (Ativan) 1 mg Q4H PRN ORAL For Anxiety 10/26/19 15:45 11/02/19 15:44 Metformin HCl (Glucophage) 500 mg TIPC ORAL 10/28/19 09:00 11/27/19 06:29 10/29/19 12:01 Ondansetron HCl (Zofran) 4 mg Q4H PRN IVP Nausea & Vomiting 10/26/19 15:45 11/25/19 15:44 Pantoprazole (Protonix) 40 mg DAILY ORAL 10/27/19 09:00 11/26/19 08:59 10/29/19 08:43 Sitagliptin Phosphate (Januvia) 100 mg DAILY ORAL 10/28/19 09:00 11/27/19 06:29 10/29/19 08:43 Sodium Chloride 1,000 ml @ 75 mls/hr [id number] IVLG 10/26/19 16:36 11/25/19 16:35 10/29/19 09:37 Temazepam (Restoril) 30 mg HSPRN PRN ORAL Insomnia 10/26/19 21:00 11/02/19 20:59 Misael Munoz MD Oct 29, 2019 13:51
--- NOTE | 2019-10-29 14:13 | NUR ---
RD ASSESSMENT & RECOMMENDATIONS SEE CARE ACTIVITY FOR COMPLETE ASSESSMENT DAILY ESTIMATED NEEDS: Needs based on DM, cardiac, obese 97kg adj 20-25 kcals/kg 3038-3755 total kcals 1-1.5 g protein/kg 97-146 g total protein 25-30 mL/kg 4288-8993 total fluid mLs NUTRITION DIAGNOSIS: Decreased kcal, sodium, and carb needs r/t cardiac history, obesity and new DM dx as evidenced by pt w/ BMI >40, elev triglycerides (257), elev LDL (106), elev BP(157/92), adm w/ A1C 10.9, BG in 300's. CURRENT DIET: [facility] HIGH PO DIET RECOMMENDATIONS-->> Diet change to [facility] MED + CARDIAC DIET ADDITIONAL RECOMMENDATIONS: 1) Obtain a standing weight as able 2) Provided pt w/ diabetes diet edu w/ handouts (10/29) 3) Lipid lowering agents
[2019-10-29 16:03] VITALS: BP 157/91
--- NOTE | 2019-10-29 18:39 | Internal Med Progress Note ---
Subjective Date of Service: Oct 29, 2019 Physician Name Tony Hoyt Attending Physician Grady Irene MD Current Medications Medications (Trade) Dose Ordered Sig/Venkata Route PRN Reason Start Time Stop Time Status Last Admin Dose Admin Acetaminophen (Tylenol) 650 mg Q4H PRN ORAL Mild Pain (Pain Scale 1-3) 10/26/19 15:45 11/25/19 15:44 Acetaminophen (Tylenol) 650 mg Q4H PRN ORAL T>100.5 10/26/19 15:45 11/25/19 15:44 Albuterol Sulfate (Proventil) 2.5 mg Q6H PRN HHN Shortness of Breath 10/26/19 16:00 10/31/19 15:59 10/27/19 00:14 Amlodipine Besylate (Norvasc) 10 mg DAILY ORAL 10/26/19 16:30 11/26/19 08:59 10/29/19 08:43 Dextrose (Dextrose 50%) 25 ml Q30M PRN IV Hypoglycemia 10/29/19 18:30 11/28/19 18:29 Dextrose (Dextrose 50%) 50 ml Q30M PRN IV Hypoglycemia 10/29/19 18:30 11/28/19 18:29 Diphenhydramine HCl (Benadryl) 25 mg Q6H PRN ORAL Itching/Pruritis 10/26/19 15:45 11/25/19 15:44 Divalproex Sodium (Depakote) 500 mg QHS ORAL 10/26/19 21:00 11/25/19 20:59 10/28/19 19:59 Glyburide (Diabeta) 5 mg BIAC ORAL 10/28/19 06:30 11/27/19 06:29 10/29/19 17:27 Insulin Aspart (NovoLOG) BEFORE MEALS AND HS SUBQ 10/26/19 17:00 11/25/19 16:59 10/29/19 17:29 Insulin Detemir (Levemir) 20 units BEDTIME SUBQ 10/29/19 21:00 11/28/19 20:59 Lacosamide (Vimpat) 100 mg Q12HR ORAL 10/26/19 21:00 11/25/19 20:59 10/29/19 08:44 Lorazepam (Ativan) 1 mg Q4H PRN ORAL For Anxiety 10/26/19 15:45 11/02/19 15:44 Metformin HCl (Glucophage) 500 mg TIPC ORAL 10/28/19 09:00 11/27/19 06:29 10/29/19 17:27 Ondansetron HCl (Zofran) 4 mg Q4H PRN IVP Nausea & Vomiting 10/26/19 15:45 11/25/19 15:44 Pantoprazole (Protonix) 40 mg DAILY ORAL 10/27/19 09:00 11/26/19 08:59 10/29/19 08:43 Sitagliptin Phosphate (Januvia) 100 mg DAILY ORAL 10/28/19 09:00 11/27/19 06:29 10/29/19 08:43 Sodium Chloride 1,000 ml @ 75 mls/hr [id number] IVLG 10/26/19 16:36 11/25/19 16:35 10/29/19 09:37 Temazepam (Restoril) 30 mg HSPRN PRN ORAL Insomnia 10/26/19 21:00 11/02/19 20:59 Allergies: Coded Allergies: No Known Allergies (Unverified , 10/26/19) ROS Limited/Unobtainable: No Constitutional: Reports: no symptoms HEENT: Reports: no symptoms Cardiovascular: Reports: no symptoms Respiratory: Reports: no symptoms Gastrointestinal/Abdominal: Reports: no symptoms Genitourinary: Reports: no symptoms Neurologic/Psychiatric: Reports: no symptoms Subjective 43 YO M admitted with new onset diabetes. Cover for Int [place]-DR Irene Objective Last Vital Signs Date Time Temp Pulse Resp B/P (MAP) Pulse Ox O2 Delivery O2 Flow Rate FiO2 10/29/19 16:03 97.8 64 19 157/91 (113) 97 10/29/19 09:00 Room Air 10/28/19 19:00 21 10/27/19 20:40 Laboratory Tests Test 10/29/19 06:39 10/29/19 08:20 White Blood Count 3.3 K/UL (4.8-10.8) L Red Blood Count 5.44 M/UL (4.70-6.10) Hemoglobin 15.7 G/DL (14.2-18.0) Hematocrit 46.6 % (42.0-52.0) Mean Corpuscular Volume 86 FL (80-99) Mean Corpuscular Hemoglobin 28.8 PG (27.0-31.0) Mean Corpuscular Hemoglobin Concent 33.7 G/DL (32.0-36.0) Red Cell Distribution Width 12.9 % (11.6-14.8) Platelet Count 241 K/UL (150-450) Mean Platelet Volume 6.0 FL (6.5-10.1) L Neutrophils (%) (Auto) % (45.0-75.0) Lymphocytes (%) (Auto) % (20.0-45.0) Monocytes (%) (Auto) % (1.0-10.0) Eosinophils (%) (Auto) % (0.0-3.0) Basophils (%) (Auto) % (0.0-2.0) Differential Total Cells Counted 100 Neutrophils % (Manual) 24 % (45-75) L Lymphocytes % (Manual) 63 % (20-45) H Monocytes % (Manual) 11 % (1-10) H Eosinophils % (Manual) 2 % (0-3) Basophils % (Manual) 0 % (0-2) Band Neutrophils 0 % (0-8) Platelet Estimate Adequate Platelet Morphology Normal Red Blood Cell Morphology Normal Sodium Level 134 MMOL/L (136-145) L Potassium Level 4.7 MMOL/L (3.5-5.1) Chloride Level 101 MMOL/L (98-107) Carbon Dioxide Level 24 MMOL/L (21-32) Anion Gap 9 mmol/L (5-15) Blood Urea Nitrogen 16 mg/dL (7-18) Creatinine 1.5 MG/DL (0.55-1.30) H Estimat Glomerular Filtration Rate 50.6 mL/min (>60) Glucose Level 335 MG/DL (74-106) H Calcium Level 9.3 MG/DL (8.5-10.1) Intake and Output 10/28/19 10/29/19 19:00 07:00 Intake Total 2400 ml 825 ml Output Total 800 ml Balance 2400 ml 25 ml Intake Oral 1500 ml IV Total 900 ml 825 ml Output Urine Total 800 ml # Voids 3 Objective PHYSICAL EXAMINATION: VITAL SIGNS: Temperature 98.1, respirations 16, pulse 64, blood pressure 173/69. GENERAL: The patient is well-developed and well-nourished obese male, in no apparent distress. HEENT: Eyes, pupils are equal and responsive to light and accommodation. Extraocular movements are intact. NECK: Supple without lymphadenopathy. CHEST: Lungs are clear to auscultation bilaterally without wheezes or rales. CARDIOVASCULAR: Regular rhythm and rate. S1 and S2 normal without murmurs, rubs, or gallops. ABDOMEN: Soft, nontender, nondistended. Positive bowel sounds. No evidence of hepatosplenomegaly. Currently, no rebound or guarding noted. EXTREMITIES: Negative for clubbing, cyanosis, or edema. RECTAL/GENITAL: Not performed. NEUROLOGIC: Cranial nerves II through XII are grossly intact without focal deficits. Motor strength is 5/5 bilaterally. Deep tendon reflexes are 2+ Assessment/Plan Assessment/Plan ASSESSMENT: This is a 43-year-old male: 1. New onset diabetes type 2. 2. Hyperglycemia. 3. Hypertension. 4. Asthma. 5. Seizure disorder. TREATMENT: 1. New onset diabetes type 2/hyperglycemia. An endocrinology consultation obtained with Dr. Pearce. The patient has been started on a novolog insulin sliding scale. The patient will be started on januvia, metformin and glyburide. Start levemir 2. Hypertension. Continue Norvasc as above. 3. Asthma. Continue ProAir and Symbicort as above. 4. Seizure disorder. Vimpat is non-formulary at [facility]. The patient may use home medications. Tony Hoyt MD Oct 29, 2019 18:39
--- NOTE | 2019-10-29 19:21 | NUR ---
HAND-OFF: Report given to BRITTANY Noel.
[2019-10-29 19:59] VITALS: BP 141/81
--- NOTE | 2019-10-29 20:00 | NUR ---
NURSE NOTES: Received patient awake, alert, verbal, resting in bed, comfortable.
[2019-10-29] MEDS: Depakote 500mg tab ORAL SCH (20:12)
[2019-10-29] MEDS ORDERED: Levemir Flexpen SUBQ SCH (21:00)
--- NOTE | 2019-10-30 01:21 | NUR ---
HAND-OFF: Report given to BRITTANY Kaye.
[2019-10-30 04:00] VITALS: BP 155/83
[2019-10-30] MEDS: NovoLOG Insulin Flexpen SUBQ SCH ×4 (06:02→20:21)
[2019-10-30 06:25] LABS: BASOPHILS % (AUTO) 2.2 % (0.0-2.0); EOSINOPHILS % (AUTO) 3.4 % (0.0-3.0); HEMATOCRIT 41.2 % (42.0-52.0); LYMPHOCYTES % (AUTO) 43.5 % (20.0-45.0); MEAN CORPUSCULAR VOLUME 85 FL (80-99); MONOCYTES % (AUTO) 10.8 % (1.0-10.0); NEUTROPHILS % (AUTO) 40.1 % (45.0-75.0); PLATELET COUNT 212 K/UL (150-450); RED BLOOD COUNT 4.85 M/UL (4.70-6.10); RED CELL DISTRIBUTION WIDTH 12.5 % (11.6-14.8); WHITE BLOOD COUNT 4.5 K/UL (4.8-10.8)
[2019-10-30 06:43] LABS: ANION GAP 11 mmol/L (5-15); BLOOD UREA NITROGEN 15 mg/dL (7-18); CALCIUM 9.1 MG/DL (8.5-10.1); CARBON DIOXIDE 24 MMOL/L (21-32); CHLORIDE 102 MMOL/L (98-107); CREATININE 1.3 MG/DL (0.55-1.30); POTASSIUM 4.5 MMOL/L (3.5-5.1); SODIUM 136 MMOL/L (136-145)
--- NOTE | 2019-10-30 07:20 | NUR ---
HAND-OFF: Report given to BRITTANY Baird.
[2019-10-30 08:00] VITALS: BP 138/83
[2019-10-30] MEDS: metFORMIN 500mg tab ORAL SCH ×3 (08:45→16:59)
[2019-10-30] MEDS: Lacosamide 50mg tablet ORAL SCH ×2 (08:45→20:21)
[2019-10-30 12:00] VITALS: BP 138/99
--- NOTE | 2019-10-30 12:16 | Pulmonology Progress Note ---
Assessment/Plan Problems: (1) New onset type 2 diabetes mellitus (2) Hyperglycemia (3) Seizure disorder (4) History of asthma (5) Diabetic nephropathy Assessment/Plan sliding scale, BS at 200's iv fluids diabetic diet endo consult appreciated, Januvia and Metformin were added renal US still pending respiratory treatment prn dvt prophylaxis. Subjective ROS Limited/Unobtainable: No Constitutional: Reports: no symptoms HEENT: Repors: no symptoms Allergies: Coded Allergies: No Known Allergies (Unverified , 10/26/19) Objective Last 24 Hour Vital Signs Date Time Temp Pulse Resp B/P (MAP) Pulse Ox O2 Delivery O2 Flow Rate FiO2 10/30/19 09:00 Room Air 10/30/19 08:45 66 138/83 10/30/19 08:29 66 22 99 Room Air 21 10/30/19 08:28 97 Room Air 21 10/30/19 08:00 97.9 69 18 138/83 (101) 97 10/30/19 04:00 97.0 69 19 155/83 (107) 95 10/29/19 20:53 Room Air 10/29/19 19:59 97.9 66 18 141/81 (101) 94 10/29/19 16:03 97.8 64 19 157/91 (113) 97 Intake and Output 10/29/19 10/30/19 18:59 06:59 Intake Total 2100 ml 1025 ml Balance 2100 ml 1025 ml Intake Oral 1200 ml 250 ml IV Total 900 ml 775 ml # Voids 2 General Appearance: WD/WN HEENT: normocephalic, atraumatic Respiratory/Chest: chest wall non-tender, lungs clear Cardiovascular: normal peripheral pulses, normal rate Extremities: no cyanosis Skin: no rash Neurologic/Psychiatric: floor layer 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 II-XII grossly normal Lymphatic: no neck adenopathy Laboratory Tests 10/30/19 05:20: White Blood Count 4.5L, Red Blood Count 4.85, Hemoglobin 14.0L, Hematocrit 41.2L , Mean Corpuscular Volume 85, Mean Corpuscular Hemoglobin 28.8, Mean Corpuscular Hemoglobin Concent 33.9, Red Cell Distribution Width 12.5, Platelet Count 212, Mean Platelet Volume 6.1L, Neutrophils (%) (Auto) 40.1L, Lymphocytes (%) (Auto) 43.5, Monocytes (%) (Auto) 10.8H, Eosinophils (%) (Auto) 3.4H, Basophils (%) (Auto) 2.2H, Sodium Level 136, Potassium Level 4.5, Chloride Level 102, Carbon Dioxide Level 24, Anion Gap 11, Blood Urea Nitrogen 15, Creatinine 1.3, Estimat Glomerular Filtration Rate 59.7, Glucose Level 247H, Calcium Level 9.1 Current Medications Medications (Trade) Dose Ordered Sig/Veknata Route PRN Reason Start Time Stop Time Status Last Admin Dose Admin Acetaminophen (Tylenol) 650 mg Q4H PRN ORAL Mild Pain (Pain Scale 1-3) 10/26/19 15:45 11/25/19 15:44 Acetaminophen (Tylenol) 650 mg Q4H PRN ORAL T>100.5 10/26/19 15:45 11/25/19 15:44 Albuterol Sulfate (Proventil) 2.5 mg Q6H PRN HHN Shortness of Breath 10/26/19 16:00 10/31/19 15:59 10/27/19 00:14 Amlodipine Besylate (Norvasc) 10 mg DAILY ORAL 10/26/19 16:30 11/26/19 08:59 10/30/19 08:45 Dextrose (Dextrose 50%) 25 ml Q30M PRN IV Hypoglycemia 10/29/19 18:30 11/28/19 18:29 Dextrose (Dextrose 50%) 50 ml Q30M PRN IV Hypoglycemia 10/29/19 18:30 11/28/19 18:29 Diphenhydramine HCl (Benadryl) 25 mg Q6H PRN ORAL Itching/Pruritis 10/26/19 15:45 11/25/19 15:44 Divalproex Sodium (Depakote) 500 mg QHS ORAL 10/26/19 21:00 11/25/19 20:59 10/29/19 20:12 Glyburide (Diabeta) 5 mg BIAC ORAL 10/28/19 06:30 11/27/19 06:29 10/30/19 06:01 Insulin Aspart (NovoLOG) BEFORE MEALS AND HS SUBQ 10/26/19 17:00 11/25/19 16:59 10/30/19 12:06 Insulin Detemir (Levemir) 20 units BEDTIME SUBQ 10/29/19 21:00 11/28/19 20:59 10/29/19 20:13 Lacosamide (Vimpat) 100 mg Q12HR ORAL 10/26/19 21:00 11/25/19 20:59 10/30/19 08:45 Lorazepam (Ativan) 1 mg Q4H PRN ORAL For Anxiety 10/26/19 15:45 11/02/19 15:44 Metformin HCl (Glucophage) 500 mg TIPC ORAL 10/28/19 09:00 11/27/19 06:29 10/30/19 12:05 Ondansetron HCl (Zofran) 4 mg Q4H PRN IVP Nausea & Vomiting 10/26/19 15:45 11/25/19 15:44 Pantoprazole (Protonix) 40 mg DAILY ORAL 10/27/19 09:00 11/26/19 08:59 10/30/19 08:45 Sitagliptin Phosphate (Januvia) 100 mg DAILY ORAL 10/28/19 09:00 11/27/19 06:29 10/30/19 08:45 Sodium Chloride 1,000 ml @ 75 mls/hr [id number] IVLG 10/26/19 16:36 11/25/19 16:35 10/29/19 23:55 Temazepam (Restoril) 30 mg HSPRN PRN ORAL Insomnia 10/26/19 21:00 11/02/19 20:59 Misael Munoz MD Oct 30, 2019 12:16
--- NOTE | 2019-10-30 15:59 | Diagnostic Imaging Report ---
Indication: Chronic renal failure Technique: Grayscale and duplex images of the kidneys, retroperitoneum, and bladder were obtained. Comparison: none Findings: Right kidney measures 11.8 cm in length. Left kidney measures 4.6 cm in length. Both kidneys demonstrate normal echogenicity. No hydronephrosis. No focal abnormality. Normal inferior vena cava. Bladder is somewhat distended, volume 372 mL. Patient reports no urgency to void. Impression: Negative for hydronephrosis Mild bladder distention.
[2019-10-30 16:00] VITALS: BP 138/93
--- NOTE | 2019-10-30 18:13 | Internal Med Progress Note ---
Subjective Date of Service: Oct 30, 2019 Physician Name Tony Hoyt Attending Physician Grady Irene MD Current Medications Medications (Trade) Dose Ordered Sig/Venkata Route PRN Reason Start Time Stop Time Status Last Admin Dose Admin Acetaminophen (Tylenol) 650 mg Q4H PRN ORAL Mild Pain (Pain Scale 1-3) 10/26/19 15:45 11/25/19 15:44 Acetaminophen (Tylenol) 650 mg Q4H PRN ORAL T>100.5 10/26/19 15:45 11/25/19 15:44 Albuterol Sulfate (Proventil) 2.5 mg Q6H PRN HHN Shortness of Breath 10/26/19 16:00 10/31/19 15:59 10/27/19 00:14 Amlodipine Besylate (Norvasc) 10 mg DAILY ORAL 10/26/19 16:30 11/26/19 08:59 10/30/19 08:45 Dextrose (Dextrose 50%) 25 ml Q30M PRN IV Hypoglycemia 10/29/19 18:30 11/28/19 18:29 Dextrose (Dextrose 50%) 50 ml Q30M PRN IV Hypoglycemia 10/29/19 18:30 11/28/19 18:29 Diphenhydramine HCl (Benadryl) 25 mg Q6H PRN ORAL Itching/Pruritis 10/26/19 15:45 11/25/19 15:44 Divalproex Sodium (Depakote) 500 mg QHS ORAL 10/26/19 21:00 11/25/19 20:59 10/29/19 20:12 Glyburide (Diabeta) 5 mg BIAC ORAL 10/28/19 06:30 11/27/19 06:29 10/30/19 16:59 Insulin Aspart (NovoLOG) BEFORE MEALS AND HS SUBQ 10/26/19 17:00 11/25/19 16:59 10/30/19 17:01 Insulin Detemir (Levemir) 26 units BEDTIME SUBQ 10/30/19 21:00 11/28/19 20:59 Lacosamide (Vimpat) 100 mg Q12HR ORAL 10/26/19 21:00 11/25/19 20:59 10/30/19 08:45 Lorazepam (Ativan) 1 mg Q4H PRN ORAL For Anxiety 10/26/19 15:45 11/02/19 15:44 Metformin HCl (Glucophage) 500 mg TIPC ORAL 10/28/19 09:00 11/27/19 06:29 10/30/19 16:59 Ondansetron HCl (Zofran) 4 mg Q4H PRN IVP Nausea & Vomiting 10/26/19 15:45 11/25/19 15:44 Pantoprazole (Protonix) 40 mg DAILY ORAL 10/27/19 09:00 11/26/19 08:59 10/30/19 08:45 Sitagliptin Phosphate (Januvia) 100 mg DAILY ORAL 10/28/19 09:00 11/27/19 06:29 10/30/19 08:45 Sodium Chloride 1,000 ml @ 75 mls/hr [id number] IVLG 10/26/19 16:36 11/25/19 16:35 10/30/19 13:31 Temazepam (Restoril) 30 mg HSPRN PRN ORAL Insomnia 10/26/19 21:00 11/02/19 20:59 Allergies: Coded Allergies: No Known Allergies (Unverified , 10/26/19) ROS Limited/Unobtainable: No Constitutional: Reports: no symptoms HEENT: Reports: no symptoms Cardiovascular: Reports: no symptoms Respiratory: Reports: no symptoms Gastrointestinal/Abdominal: Reports: no symptoms Genitourinary: Reports: no symptoms Neurologic/Psychiatric: Reports: no symptoms Subjective 43 YO M admitted with new onset diabetes. Cover for Int Terrell-DR Irene Objective Last Vital Signs Date Time Temp Pulse Resp B/P (MAP) Pulse Ox O2 Delivery O2 Flow Rate FiO2 10/30/19 16:00 97.7 71 18 138/93 (108) 97 10/30/19 09:00 Room Air 10/30/19 08:29 21 10/27/19 20:40 Laboratory Tests Test 10/30/19 05:20 White Blood Count 4.5 K/UL (4.8-10.8) L Red Blood Count 4.85 M/UL (4.70-6.10) Hemoglobin 14.0 G/DL (14.2-18.0) L Hematocrit 41.2 % (42.0-52.0) L Mean Corpuscular Volume 85 FL (80-99) Mean Corpuscular Hemoglobin 28.8 PG (27.0-31.0) Mean Corpuscular Hemoglobin Concent 33.9 G/DL (32.0-36.0) Red Cell Distribution Width 12.5 % (11.6-14.8) Platelet Count 212 K/UL (150-450) Mean Platelet Volume 6.1 FL (6.5-10.1) L Neutrophils (%) (Auto) 40.1 % (45.0-75.0) L Lymphocytes (%) (Auto) 43.5 % (20.0-45.0) Monocytes (%) (Auto) 10.8 % (1.0-10.0) H Eosinophils (%) (Auto) 3.4 % (0.0-3.0) H Basophils (%) (Auto) 2.2 % (0.0-2.0) H Sodium Level 136 MMOL/L (136-145) Potassium Level 4.5 MMOL/L (3.5-5.1) Chloride Level 102 MMOL/L (98-107) Carbon Dioxide Level 24 MMOL/L (21-32) Anion Gap 11 mmol/L (5-15) Blood Urea Nitrogen 15 mg/dL (7-18) Creatinine 1.3 MG/DL (0.55-1.30) Estimat Glomerular Filtration Rate 59.7 mL/min (>60) Glucose Level 247 MG/DL (74-106) H Calcium Level 9.1 MG/DL (8.5-10.1) Intake and Output 10/29/19 10/30/19 19:00 07:00 Intake Total 2025 ml 1100 ml Balance 2025 ml 1100 ml Intake Oral 1200 ml 250 ml IV Total 825 ml 850 ml # Voids 2 Objective PHYSICAL EXAMINATION: VITAL SIGNS: Temperature 98.1, respirations 16, pulse 64, blood pressure 173/69. GENERAL: The patient is well-developed and well-nourished obese male, in no apparent distress. HEENT: Eyes, pupils are equal and responsive to light and accommodation. Extraocular movements are intact. NECK: Supple without lymphadenopathy. CHEST: Lungs are clear to auscultation bilaterally without wheezes or rales. CARDIOVASCULAR: Regular rhythm and rate. S1 and S2 normal without murmurs, rubs, or gallops. ABDOMEN: Soft, nontender, nondistended. Positive bowel sounds. No evidence of hepatosplenomegaly. Currently, no rebound or guarding noted. EXTREMITIES: Negative for clubbing, cyanosis, or edema. RECTAL/GENITAL: Not performed. NEUROLOGIC: Cranial nerves II through XII are grossly intact without focal deficits. Motor strength is 5/5 bilaterally. Deep tendon reflexes are 2+ Assessment/Plan Assessment/Plan ASSESSMENT: This is a 43-year-old male: 1. New onset diabetes type 2. 2. Hyperglycemia. 3. Hypertension. 4. Asthma. 5. Seizure disorder. TREATMENT: 1. New onset diabetes type 2/hyperglycemia. An endocrinology consultation obtained with Dr. Pearce. The patient has been started on a novolog insulin sliding scale. The patient will be started on januvia, metformin, glyburide. and levemir 2. Hypertension. Continue Norvasc as above. 3. Asthma. Continue ProAir and Symbicort as above. 4. Seizure disorder. Vimpat is non-formulary at [facility]. The patient may use home medications. Tony Hoyt MD Oct 30, 2019 18:13
--- NOTE | 2019-10-30 19:05 | NUR ---
HAND-OFF: Report given to Philipp VILLA RN.
--- NOTE | 2019-10-30 19:38 | NUR ---
NURSE NOTES: Patient received in bed, on his cellphone. Denies acute distress at this time. Call light in reach. Will continue to monitor.
[2019-10-30 20:00] VITALS: BP 140/84
[2019-10-30] MEDS: Depakote 500mg tab ORAL SCH (20:21)
[2019-10-30] MEDS ORDERED: Levemir Flexpen SUBQ SCH (21:00)
--- NOTE | 2019-10-30 21:22 | General Progress Note ---
Assessment/Plan Problem List: (1) New onset type 2 diabetes mellitus ICD Codes: E11.9 - Type 2 diabetes mellitus without complications SNOMED: 12161429 (2) Hyperglycemia ICD Codes: R73.9 - Hyperglycemia, unspecified SNOMED: 70114850 (3) History of asthma ICD Codes: Z87.09 - Personal history of other diseases of the respiratory system SNOMED: 095370531 (4) Seizure disorder ICD Codes: G40.909 - Epilepsy, unspecified, not intractable, without status epilepticus SNOMED: 572378029 Assessment/Plan: glucose values are improving continue Levemir 26 units qhs continue Glyburide 5 mg bid continue Metformin 500 mg tid continue Januvia 100 mg daily continue NISS ac / hs Subjective Allergies: Coded Allergies: No Known Allergies (Unverified , 10/26/19) All Systems: reviewed and negative except above Subjective events noted glucose values are trending down Item Value Date Time Bedside Blood Glucose 176 mg/dl H 10/30/19 2058 Bedside Blood Glucose 238 mg/dl H 10/30/19 1701 Bedside Blood Glucose 226 mg/dl H 10/30/19 1206 Bedside Blood Glucose 245 mg/dl H 10/30/19 0602 Objective Last 24 Hour Vital Signs Date Time Temp Pulse Resp B/P (MAP) Pulse Ox O2 Delivery O2 Flow Rate FiO2 10/30/19 21:00 Room Air 10/30/19 20:00 97.6 67 18 140/84 (102) 97 10/30/19 16:00 97.7 71 18 138/93 (108) 97 10/30/19 12:00 97.7 67 18 138/99 (112) 96 10/30/19 09:00 Room Air 10/30/19 08:45 66 138/83 10/30/19 08:29 66 22 99 Room Air 21 10/30/19 08:28 97 Room Air 21 10/30/19 08:00 97.9 69 18 138/83 (101) 97 10/30/19 04:00 97.0 69 19 155/83 (107) 95 Intake and Output 10/29/19 10/30/19 19:00 07:00 Intake Total 2025 ml 1100 ml Balance 2025 ml 1100 ml Intake Oral 1200 ml 250 ml IV Total 825 ml 850 ml # Voids 2 Laboratory Tests 10/30/19 05:20: White Blood Count 4.5L, Red Blood Count 4.85, Hemoglobin 14.0L, Hematocrit 41.2L , Mean Corpuscular Volume 85, Mean Corpuscular Hemoglobin 28.8, Mean Corpuscular Hemoglobin Concent 33.9, Red Cell Distribution Width 12.5, Platelet Count 212, Mean Platelet Volume 6.1L, Neutrophils (%) (Auto) 40.1L, Lymphocytes (%) (Auto) 43.5, Monocytes (%) (Auto) 10.8H, Eosinophils (%) (Auto) 3.4H, Basophils (%) (Auto) 2.2H, Sodium Level 136, Potassium Level 4.5, Chloride Level 102, Carbon Dioxide Level 24, Anion Gap 11, Blood Urea Nitrogen 15, Creatinine 1.3, Estimat Glomerular Filtration Rate 59.7, Glucose Level 247H, Calcium Level 9.1 Height (Feet): 6 Height (Inches): 1.00 Weight (Pounds): 304 General Appearance: no apparent distress Neck: normal alignment Cardiovascular: normal rate Respiratory/Chest: lungs clear Abdomen: normal bowel sounds Edema: no edema noted Arm (L), no edema noted Arm (R), no edema noted Leg (L), no edema noted Leg (R), no edema noted Pedal (L), no edema noted Pedal (R), no edema noted Generalized Objective Current Medications Medications (Trade) Dose Ordered Sig/Venkata Route PRN Reason Start Time Stop Time Status Last Admin Dose Admin Acetaminophen (Tylenol) 650 mg Q4H PRN ORAL Mild Pain (Pain Scale 1-3) 10/26/19 15:45 11/25/19 15:44 Acetaminophen (Tylenol) 650 mg Q4H PRN ORAL T>100.5 10/26/19 15:45 11/25/19 15:44 Albuterol Sulfate (Proventil) 2.5 mg Q6H PRN HHN Shortness of Breath 10/26/19 16:00 10/31/19 15:59 10/27/19 00:14 Amlodipine Besylate (Norvasc) 10 mg DAILY ORAL 10/26/19 16:30 11/26/19 08:59 10/30/19 08:45 Dextrose (Dextrose 50%) 25 ml Q30M PRN IV Hypoglycemia 10/29/19 18:30 1/17/20 18:29 Dextrose (Dextrose 50%) 50 ml Q30M PRN IV Hypoglycemia 10/29/19 18:30 11/28/19 18:29 Diphenhydramine HCl (Benadryl) 25 mg Q6H PRN ORAL Itching/Pruritis 10/26/19 15:45 11/25/19 15:44 Divalproex Sodium (Depakote) 500 mg QHS ORAL 10/26/19 21:00 11/25/19 20:59 10/30/19 20:21 Glyburide (Diabeta) 5 mg BIAC ORAL 10/28/19 06:30 11/27/19 06:29 10/30/19 16:59 Insulin Aspart (NovoLOG) BEFORE MEALS AND HS SUBQ 10/26/19 17:00 11/25/19 16:59 10/30/19 20:21 Insulin Detemir (Levemir) 26 units BEDTIME SUBQ 10/30/19 21:00 11/28/19 20:59 10/30/19 20:19 Lacosamide (Vimpat) 100 mg Q12HR ORAL 10/26/19 21:00 11/25/19 20:59 10/30/19 20:21 Lorazepam (Ativan) 1 mg Q4H PRN ORAL For Anxiety 10/26/19 15:45 11/02/19 15:44 Metformin HCl (Glucophage) 500 mg TIPC ORAL 10/28/19 09:00 11/27/19 06:29 10/30/19 16:59 Ondansetron HCl (Zofran) 4 mg Q4H PRN IVP Nausea & Vomiting 10/26/19 15:45 11/25/19 15:44 Pantoprazole (Protonix) 40 mg DAILY ORAL 10/27/19 09:00 11/26/19 08:59 10/30/19 08:45 Sitagliptin Phosphate (Januvia) 100 mg DAILY ORAL 10/28/19 09:00 11/27/19 06:29 10/30/19 08:45 Temazepam (Restoril) 30 mg HSPRN PRN ORAL Insomnia 10/26/19 21:00 11/02/19 20:59 Mainor Pearce MD Oct 30, 2019 21:22
[2019-10-30 23:30] VITALS: BP 146/83
[2019-10-31 03:53] VITALS: BP 127/72
[2019-10-31] MEDS: NovoLOG Insulin Flexpen SUBQ SCH ×3 (06:17→17:02)
--- NOTE | 2019-10-31 07:07 | General Progress Note ---
Assessment/Plan Problem List: (1) New onset type 2 diabetes mellitus ICD Codes: E11.9 - Type 2 diabetes mellitus without complications SNOMED: 76460603 (2) Hyperglycemia ICD Codes: R73.9 - Hyperglycemia, unspecified SNOMED: 83324442 (3) History of asthma ICD Codes: Z87.09 - Personal history of other diseases of the respiratory system SNOMED: 507549564 (4) Seizure disorder ICD Codes: G40.909 - Epilepsy, unspecified, not intractable, without status epilepticus SNOMED: 720361459 Assessment/Plan: glucose values are improving continue Levemir 26 units qhs continue Glyburide 5 mg bid continue Metformin 500 mg tid continue Januvia 100 mg daily continue NISS ac / hs Subjective Allergies: Coded Allergies: No Known Allergies (Unverified , 10/26/19) All Systems: reviewed and negative except above Subjective events noted glucose values are trending down Item Value Date Time Bedside Blood Glucose 172 mg/dl H 10/31/19 0624 Bedside Blood Glucose 176 mg/dl H 10/30/19 2058 Bedside Blood Glucose 238 mg/dl H 10/30/19 1701 Bedside Blood Glucose 226 mg/dl H 10/30/19 1206 Bedside Blood Glucose 245 mg/dl H 10/30/19 0602 Objective Last 24 Hour Vital Signs Date Time Temp Pulse Resp B/P (MAP) Pulse Ox O2 Delivery O2 Flow Rate FiO2 10/31/19 03:53 97.7 66 18 127/72 (90) 96 10/30/19 23:30 97.4 62 18 146/83 (104) 97 10/30/19 21:00 Room Air 10/30/19 20:00 97.6 67 18 140/84 (102) 97 10/30/19 19:44 59 20 95 Room Air 21 10/30/19 16:00 97.7 71 18 138/93 (108) 97 10/30/19 12:00 97.7 67 18 138/99 (112) 96 10/30/19 09:00 Room Air 10/30/19 08:45 66 138/83 10/30/19 08:29 66 22 99 Room Air 21 10/30/19 08:28 97 Room Air 21 10/30/19 08:00 97.9 69 18 138/83 (101) 97 Intake and Output 10/30/19 10/31/19 19:00 07:00 Intake Total 1550 ml 500 ml Balance 1550 ml 500 ml Intake Oral 800 ml 500 ml IV Total 750 ml # Voids 3 4 Height (Feet): 6 Height (Inches): 1.00 Weight (Pounds): 304 General Appearance: no apparent distress Neck: normal alignment Cardiovascular: normal rate Abdomen: normal bowel sounds Pelvis: normal external exam Objective Current Medications Medications (Trade) Dose Ordered Sig/Venkata Route PRN Reason Start Time Stop Time Status Last Admin Dose Admin Acetaminophen (Tylenol) 650 mg Q4H PRN ORAL Mild Pain (Pain Scale 1-3) 10/26/19 15:45 11/25/19 15:44 Acetaminophen (Tylenol) 650 mg Q4H PRN ORAL T>100.5 10/26/19 15:45 11/25/19 15:44 Albuterol Sulfate (Proventil) 2.5 mg Q6H PRN HHN Shortness of Breath 10/26/19 16:00 10/31/19 15:59 10/27/19 00:14 Amlodipine Besylate (Norvasc) 10 mg DAILY ORAL 10/26/19 16:30 11/26/19 08:59 10/30/19 08:45 Dextrose (Dextrose 50%) 25 ml Q30M PRN IV Hypoglycemia 10/29/19 18:30 11/28/19 18:29 Dextrose (Dextrose 50%) 50 ml Q30M PRN IV Hypoglycemia 10/29/19 18:30 11/28/19 18:29 Diphenhydramine HCl (Benadryl) 25 mg Q6H PRN ORAL Itching/Pruritis 10/26/19 15:45 11/25/19 15:44 Divalproex Sodium (Depakote) 500 mg QHS ORAL 10/26/19 21:00 11/25/19 20:59 10/30/19 20:21 Glyburide (Diabeta) 5 mg BIAC ORAL 10/28/19 06:30 11/27/19 06:29 10/31/19 06:14 Insulin Aspart (NovoLOG) BEFORE MEALS AND HS SUBQ 10/26/19 17:00 11/25/19 16:59 10/31/19 06:17 Insulin Detemir (Levemir) 26 units BEDTIME SUBQ 10/30/19 21:00 11/28/19 20:59 10/30/19 20:19 Lacosamide (Vimpat) 100 mg Q12HR ORAL 10/26/19 21:00 11/25/19 20:59 10/30/19 20:21 Lorazepam (Ativan) 1 mg Q4H PRN ORAL For Anxiety 10/26/19 15:45 11/02/19 15:44 Metformin HCl (Glucophage) 500 mg TIPC ORAL 10/28/19 09:00 11/27/19 06:29 10/30/19 16:59 Ondansetron HCl (Zofran) 4 mg Q4H PRN IVP Nausea & Vomiting 10/26/19 15:45 11/25/19 15:44 Pantoprazole (Protonix) 40 mg DAILY ORAL 10/27/19 09:00 11/26/19 08:59 10/30/19 08:45 Sitagliptin Phosphate (Januvia) 100 mg DAILY ORAL 10/28/19 09:00 11/27/19 06:29 10/30/19 08:45 Temazepam (Restoril) 30 mg HSPRN PRN ORAL Insomnia 10/26/19 21:00 11/02/19 20:59 Mainor Pearce MD Oct 31, 2019 07:07
--- NOTE | 2019-10-31 07:20 | NUR ---
HAND-OFF: Report given to Hai SOTO.
--- NOTE | 2019-10-31 07:21 | NUR ---
NURSE NOTES: Report received from Patricia SOTO. Patient awake and alert x 4 sitting in high fowlers position in bed. Patient currently eating breakfast. Patient denies pain at this time and does not have any complaints. Communicated with patient that will nurse will follow up with MD about discharging patient today. Call light within reach. Educated patient to call for any needs. Bed in lowest position and locked. Will continue to follow plan of care.
[2019-10-31 07:32] LABS: BASOPHILS % (AUTO) 1.9 % (0.0-2.0); EOSINOPHILS % (AUTO) 3.2 % (0.0-3.0); HEMATOCRIT 44.2 % (42.0-52.0); HEMOGLOBIN 15.1 G/DL (14.2-18.0); LYMPHOCYTES % (AUTO) 44.8 % (20.0-45.0); MEAN CORPUSCULAR VOLUME 85 FL (80-99); MONOCYTES % (AUTO) 10.8 % (1.0-10.0); NEUTROPHILS % (AUTO) 39.3 % (45.0-75.0); PLATELET COUNT 221 K/UL (150-450); RED CELL DISTRIBUTION WIDTH 12.9 % (11.6-14.8); WHITE BLOOD COUNT 4.9 K/UL (4.8-10.8)
[2019-10-31 07:50] LABS: ANION GAP 9 mmol/L (5-15); BLOOD UREA NITROGEN 14 mg/dL (7-18); CARBON DIOXIDE 26 MMOL/L (21-32); CHLORIDE 103 MMOL/L (98-107); CREATININE 1.3 MG/DL (0.55-1.30); POTASSIUM 4.2 MMOL/L (3.5-5.1); SODIUM 138 MMOL/L (136-145)
[2019-10-31 08:00] VITALS: BP 146/88
--- NOTE | 2019-10-31 08:33 | Pulmonology Progress Note ---
Assessment/Plan Assessment/Plan ASSESSMENT Hyperglycemia New onset of diabetes mellitus type 2 Seizure disorder Anemia Diabetic nephropathy Hypertension Obesity Probably [facility] floor s/p IVF O2 HHN prn pulse ox stable on RA no evidence of asthma exacerbation DVT prophylaxis silverer on board HgbA1c 10.9 antiglycemic regimen optimized per endo, since BS still not controlled patient on long acting Levemir along with metformin ,Januvia and glyburide diabetic diet diabetic teaching renal ultrasound no hydro; normal bilateral kidney echogenicity creatinine already down to normal, avoid nephrotoxics BP management with CCB seizure precautions, continue Depakote and Vimpat no evidence of seizure activity while in the hospital outpatient sleep study was recommended case discussed and evaluated by supervising physician Subjective Allergies: Coded Allergies: No Known Allergies (Unverified , 10/26/19) Subjective BS improving wants to go home no SOB, no CP never had sleep study, admits to snoring and intermittent gasping for air at night Objective Last 24 Hour Vital Signs Date Time Temp Pulse Resp B/P (MAP) Pulse Ox O2 Delivery O2 Flow Rate FiO2 10/31/19 07:35 67 18 96 Room Air 21 10/31/19 03:53 97.7 66 18 127/72 (90) 96 10/30/19 23:30 97.4 62 18 146/83 (104) 97 10/30/19 21:00 Room Air 10/30/19 20:00 97.6 67 18 140/84 (102) 97 10/30/19 19:44 59 20 95 Room Air 21 10/30/19 16:00 97.7 71 18 138/93 (108) 97 10/30/19 12:00 97.7 67 18 138/99 (112) 96 10/30/19 09:00 Room Air 10/30/19 08:45 66 138/83 Intake and Output 10/30/19 10/31/19 18:59 06:59 Intake Total 1625 ml 500 ml Balance 1625 ml 500 ml Intake Oral 800 ml 500 ml IV Total 825 ml # Voids 3 4 General Appearance: other - A/A/O x 3 AA obese male in NAD Respiratory/Chest: lungs clear, no respiratory distress, no accessory muscle use Cardiovascular: normal peripheral pulses, normal rate, no JVD Abdomen: normal bowel sounds, soft, non tender - obese Extremities: no edema, pedal pulses normal 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, no motor/sensory deficits, alert, oriented x 3, responsive Musculoskeletal: normal muscle bulk Laboratory Tests 10/31/19 07:10: White Blood Count 4.9, Red Blood Count 5.20, Hemoglobin 15.1, Hematocrit 44.2, Mean Corpuscular Volume 85, Mean Corpuscular Hemoglobin 28.9, Mean Corpuscular Hemoglobin Concent 34.0, Red Cell Distribution Width 12.9, Platelet Count 221, Mean Platelet Volume 6.3L, Neutrophils (%) (Auto) 39.3L, Lymphocytes (%) (Auto) 44.8, Monocytes (%) (Auto) 10.8H, Eosinophils (%) (Auto) 3.2H, Basophils (%) ( Auto) 1.9, Sodium Level 138, Potassium Level 4.2, Chloride Level 103, Carbon Dioxide Level 26, Anion Gap 9, Blood Urea Nitrogen 14, Creatinine 1.3, Estimat Glomerular Filtration Rate 59.7, Glucose Level 164H, Calcium Level 9.0 Current Medications Medications (Trade) Dose Ordered Sig/Venkata Route PRN Reason Start Time Stop Time Status Last Admin Dose Admin Acetaminophen (Tylenol) 650 mg Q4H PRN ORAL Mild Pain (Pain Scale 1-3) 10/26/19 15:45 11/25/19 15:44 Acetaminophen (Tylenol) 650 mg Q4H PRN ORAL T>100.5 10/26/19 15:45 11/25/19 15:44 Albuterol Sulfate (Proventil) 2.5 mg Q6H PRN HHN Shortness of Breath 10/26/19 16:00 10/31/19 15:59 10/27/19 00:14 Amlodipine Besylate (Norvasc) 10 mg DAILY ORAL 10/26/19 16:30 11/26/19 08:59 10/30/19 08:45 Dextrose (Dextrose 50%) 25 ml Q30M PRN IV Hypoglycemia 10/29/19 18:30 11/28/19 18:29 Dextrose (Dextrose 50%) 50 ml Q30M PRN IV Hypoglycemia 10/29/19 18:30 11/28/19 18:29 Diphenhydramine HCl (Benadryl) 25 mg Q6H PRN ORAL Itching/Pruritis 10/26/19 15:45 11/25/19 15:44 Divalproex Sodium (Depakote) 500 mg QHS ORAL 10/26/19 21:00 11/25/19 20:59 10/30/19 20:21 Glyburide (Diabeta) 5 mg BIAC ORAL 10/28/19 06:30 11/27/19 06:29 10/31/19 06:14 Insulin Aspart (NovoLOG) BEFORE MEALS AND HS SUBQ 10/26/19 17:00 11/25/19 16:59 10/31/19 06:17 Insulin Detemir (Levemir) 26 units BEDTIME SUBQ 10/30/19 21:00 11/28/19 20:59 10/30/19 20:19 Lacosamide (Vimpat) 100 mg Q12HR ORAL 10/26/19 21:00 11/25/19 20:59 10/30/19 20:21 Lorazepam (Ativan) 1 mg Q4H PRN ORAL For Anxiety 10/26/19 15:45 11/02/19 15:44 Metformin HCl (Glucophage) 500 mg TIPC ORAL 10/28/19 09:00 11/27/19 06:29 10/30/19 16:59 Ondansetron HCl (Zofran) 4 mg Q4H PRN IVP Nausea & Vomiting 10/26/19 15:45 11/25/19 15:44 Pantoprazole (Protonix) 40 mg DAILY ORAL 10/27/19 09:00 11/26/19 08:59 10/30/19 08:45 Sitagliptin Phosphate (Januvia) 100 mg DAILY ORAL 10/28/19 09:00 11/27/19 06:29 10/30/19 08:45 Temazepam (Restoril) 30 mg HSPRN PRN ORAL Insomnia 10/26/19 21:00 11/02/19 20:59 Elly Wild NP Oct 31, 2019 08:33
[2019-10-31] MEDS: metFORMIN 500mg tab ORAL SCH ×2 (08:45→12:58)
[2019-10-31] MEDS: Lacosamide 50mg tablet ORAL SCH (08:46)
[2019-10-31 12:00] VITALS: BP 152/88
--- NOTE | 2019-10-31 15:21 | NUR ---
*-* INSURANCE *-* ALL AVAILABLE CLINICALS HAVE BEEN FAXED TO: [facility] REF# [id number] P: [phone] F: [phone]
[2019-10-31 16:00] VITALS: BP 146/83
[2019-10-31] MEDS ORDERED: GLYBURIDE5 MG PO (16:22)
[2019-10-31] MEDS ORDERED: GLUCOPHAGE500 MG ORAL (16:23)
[2019-10-31] MEDS ORDERED: LEVEMIR FL100 UNIT/1 SUBQ (16:23)
[2019-10-31] MEDS ORDERED: JANUVIA100 MG ORAL (16:25)
[2019-10-31] MEDS ORDERED: NOVOLOG100 UNITS1 (16:30)
--- NOTE | 2019-10-31 17:03 | Internal Med Progress Note ---
Subjective Physician Name Grady Irene Attending Physician Grady Irene MD Current Medications Medications (Trade) Dose Ordered Sig/Venkata Route PRN Reason Start Time Stop Time Status Last Admin Dose Admin Acetaminophen (Tylenol) 650 mg Q4H PRN ORAL Mild Pain (Pain Scale 1-3) 10/26/19 15:45 11/25/19 15:44 Acetaminophen (Tylenol) 650 mg Q4H PRN ORAL T>100.5 10/26/19 15:45 11/25/19 15:44 Amlodipine Besylate (Norvasc) 10 mg DAILY ORAL 10/26/19 16:30 11/26/19 08:59 10/31/19 08:46 Dextrose (Dextrose 50%) 25 ml Q30M PRN IV Hypoglycemia 10/29/19 18:30 11/28/19 18:29 Dextrose (Dextrose 50%) 50 ml Q30M PRN IV Hypoglycemia 10/29/19 18:30 11/28/19 18:29 Diphenhydramine HCl (Benadryl) 25 mg Q6H PRN ORAL Itching/Pruritis 10/26/19 15:45 11/25/19 15:44 Divalproex Sodium (Depakote) 500 mg QHS ORAL 10/26/19 21:00 11/25/19 20:59 10/30/19 20:21 Glyburide (Diabeta) 5 mg BIAC ORAL 10/28/19 06:30 11/27/19 06:29 10/31/19 06:14 Insulin Aspart (NovoLOG) BEFORE MEALS AND HS SUBQ 10/26/19 17:00 11/25/19 16:59 10/31/19 11:44 Insulin Detemir (Levemir) 26 units BEDTIME SUBQ 10/30/19 21:00 11/28/19 20:59 10/30/19 20:19 Lacosamide (Vimpat) 100 mg Q12HR ORAL 10/26/19 21:00 11/25/19 20:59 10/31/19 08:46 Lorazepam (Ativan) 1 mg Q4H PRN ORAL For Anxiety 10/26/19 15:45 11/02/19 15:44 Metformin HCl (Glucophage) 500 mg TIPC ORAL 10/28/19 09:00 11/27/19 06:29 10/31/19 12:58 Ondansetron HCl (Zofran) 4 mg Q4H PRN IVP Nausea & Vomiting 10/26/19 15:45 11/25/19 15:44 Pantoprazole (Protonix) 40 mg DAILY ORAL 10/27/19 09:00 11/26/19 08:59 10/31/19 08:45 Sitagliptin Phosphate (Januvia) 100 mg DAILY ORAL 10/28/19 09:00 11/27/19 06:29 10/31/19 08:46 Temazepam (Restoril) 30 mg HSPRN PRN ORAL Insomnia 10/26/19 21:00 11/02/19 20:59 Allergies: Coded Allergies: No Known Allergies (Unverified , 10/26/19) Subjective Alert, awake, responsive, denies any chest pain or shortness of breath Objective Last Vital Signs Date Time Temp Pulse Resp B/P (MAP) Pulse Ox O2 Delivery O2 Flow Rate FiO2 10/31/19 16:00 97.2 62 18 146/83 (104) 98 10/31/19 09:00 Room Air 10/31/19 07:35 21 10/27/19 20:40 Laboratory Tests Test 10/31/19 07:10 White Blood Count 4.9 K/UL (4.8-10.8) Red Blood Count 5.20 M/UL (4.70-6.10) Hemoglobin 15.1 G/DL (14.2-18.0) Hematocrit 44.2 % (42.0-52.0) Mean Corpuscular Volume 85 FL (80-99) Mean Corpuscular Hemoglobin 28.9 PG (27.0-31.0) Mean Corpuscular Hemoglobin Concent 34.0 G/DL (32.0-36.0) Red Cell Distribution Width 12.9 % (11.6-14.8) Platelet Count 221 K/UL (150-450) Mean Platelet Volume 6.3 FL (6.5-10.1) L Neutrophils (%) (Auto) 39.3 % (45.0-75.0) L Lymphocytes (%) (Auto) 44.8 % (20.0-45.0) Monocytes (%) (Auto) 10.8 % (1.0-10.0) H Eosinophils (%) (Auto) 3.2 % (0.0-3.0) H Basophils (%) (Auto) 1.9 % (0.0-2.0) Sodium Level 138 MMOL/L (136-145) Potassium Level 4.2 MMOL/L (3.5-5.1) Chloride Level 103 MMOL/L (98-107) Carbon Dioxide Level 26 MMOL/L (21-32) Anion Gap 9 mmol/L (5-15) Blood Urea Nitrogen 14 mg/dL (7-18) Creatinine 1.3 MG/DL (0.55-1.30) Estimat Glomerular Filtration Rate 59.7 mL/min (>60) Glucose Level 164 MG/DL (74-106) H Calcium Level 9.0 MG/DL (8.5-10.1) Intake and Output 10/30/19 10/31/19 19:00 07:00 Intake Total 1550 ml 500 ml Balance 1550 ml 500 ml Intake Oral 800 ml 500 ml IV Total 750 ml # Voids 3 4 Objective General: No acute distress, awake and alert HEENT: NCAT, sclera anicteric, PERRL, EOMI. Neck: Supple, no significant jugular venous distention, Lungs: Fair inspiratory effort, lateral air entry no Wheeze or Rales. Heart: Regular rate and rhythm, normal S1/S2, no murmurs. Abdomen: soft, nontender, nondistended. Normoactive bowel sounds, obese obesity. / Rectal: Refused and deferred. Extremities: No Cyanosis , clubbing or edema. Neuro: A&O x 3, Able to move all extremities Skin: warm, no rashes or lesions Psych: Normal mood and affect Assessment/Plan Assessment/Plan 1. New onset diabetes type 2. 2. Hyperglycemia. 3. Hypertension. 4. Asthma. 5. Seizure disorder. TREATMENT: 1. New onset diabetes type 2/hyperglycemia. An endocrinology consultation obtained with Dr. Pearce. The patient has been started on a novolog insulin sliding scale. The patient will be started on januvia, metformin, glyburide. and levemir 2. Hypertension. Continue Norvasc as above. 3. Asthma. Continue ProAir and Symbicort as above. 4. Seizure disorder. Vimpat is non-formulary at [facility]. The patient may use home medications. DC home today, Follow-up in my office next week. Grady Irene MD Oct 31, 2019 17:02
--- NOTE | 2019-10-31 17:35 | NUR ---
NURSE NOTES: Patient discharged. Personal belongings inventoried and sent with patient. IV removed and site covered. ID band removed and disposed of. Patient needs met and patient kept comfortable at all times. Patient departed in private vehicle with mother.
--- NOTE | 2019-11-01 15:07 | Discharge Summary ---
Discharge Summary Discharge Summary _ DATE OF ADMISSION: 10/26/2019 DATE OF DISCHARGE: 10/31/2019 DISCHARGED BY: Dr. Grady Irene CONSULTANTS: Dr. Mainor Munoz BRIEF HOSPITAL COURSE: Patient is a 43-year-old -[place] male who presented with chief complaint of high blood sugar. The patient has history of increased frequency of urination for the past 2 weeks. Symptoms increased dramatically over the week. Mother has history of diabetes. The patient took blood sugar at home and was read greater than 600. Patient initially presented to [facility] emergency room. Patient was given insulin at [place]. Patient was transferred to [facility] for insurance purposes. Patient was admitted for hyperglycemia and new onset diabetes. Blood glucose was monitored. Patient was started on regular sliding insulin scale. He was started on metformin and glyburide. He was given Norvasc for hypertension. He was given Symbicort and pro-air for asthma. He was given respiratory treatment. Hemoglobin A1c was 10.9. He has a history of seizure disorder. He was placed on seizure precautions, continued on Depakote and Vimpat. He was given IV hydration. There was no signs of DKA. He was started on Levemir and NovoLog. Januvia was added to his regimen. He was given diabetic education. Anti-glycemic regimen was titrated. He was eventually taken off mealtime NovoLog. Fasting blood sugar was stable. He was saturating well on room air. There was no evidence of asthma exacerbation. Kidney function normalized. Ultrasound of the kidney showed normal echogenic kidneys. He was eventually discharged home. FINAL DIAGNOSES: New onset diabetes mellitus type 2 Seizure disorder Anemia Acute kidney injury Hypertension Obesity Probably obstructive sleep apnea DISPOSITION: Patient was discharged home. DISCHARGE MEDICATIONS: Refer to Discharge Medication List. DISCHARGE INSTRUCTIONS: Follow-up in a week. I have been assigned to complete a discharge summary on this account, I was not involved with the patient's management.--PRASAD Coleman Jacqueline Robles NP Nov 01, 2019 15:07
== END 2019-10-31 17:51 | disposition home or self-care (01) | DRG 638 ==
LOC: 4E 11:20
DX: E11.65 Type 2 diabetes mellitus with hyperglycemia (principal); Z68.41 Body mass index [BMI] 40.0-44.9, adult; N17.9 Acute kidney failure, unspecified; E66.01 Morbid (severe) obesity due to excess calories; G40.909 Epilepsy, unspecified, not intractable, without status epilepticus; J45.909 Unspecified asthma, uncomplicated; I10 Essential (primary) hypertension; G47.33 Obstructive sleep apnea (adult) (pediatric); E11.21 Type 2 diabetes mellitus with diabetic nephropathy
CPT/HCPCS: 36415; 76770; 80048; 80053; 80061; 81003; 82962; 83036; 85007; 85025; 94640; 94664; J1815; J7030; S5561